=== PATIENT | female | born 1955 | race Caucasian/White ===

== ENCOUNTER 2022-04-11 11:46 | Outpatient (AMB) | payer MEDICARE, SELFPAY ==
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
[2022-04-11 12:30] VITALS: BP 142/94; PULSE 87; O2SAT 97; BMI 37.7
== END 2022-04-11 13:15 | disposition home or self-care (01) ==
LOC: HO.HMGC 11:46
PROVIDERS: PCP Internal Medicine; Visit Provider Internal Medicine
DX: Z00.01 Encounter for general adult medical examination with abnormal findings (principal); I10 Essential (primary) hypertension; F41.9 Anxiety disorder, unspecified; F32.A Depression, unspecified; E89.40 Asymptomatic postprocedural ovarian failure
CPT/HCPCS: 99397

== ENCOUNTER 2022-04-11 13:17 | Outpatient (REF) | payer MEDICARE, SELFPAY ==
[2022-04-11 16:27] LABS: MANUAL DIFF FLAG NO
[2022-04-11 16:40] LABS: Basophils Percent Auto 0.4 % (0-2); Eosinophils Absolute Auto 0.2 X10*3/uL (0.0-0.4); Eosinophils Percent Auto 2.1 % (0-4); Hematocrit 43.8 % (37.0-47.0); Hemoglobin 14.2 g/dl (12.0-16.0); Imm Gran Abs Auto 0.01 X10*3/uL (0.00-0.03); Imm Gran Pct Auto 0.1 % (0.0-0.4); Lymphocytes Absolute Auto 2.4 X10*3/uL (1.2-4.9); Lymphocytes Percent Auto 29.4 % (20-40); Mean Corpuscular HGB Conc 32.4 g/dl (31.0-35.0); Mean Corpuscular Hemoglobin 26.4 pg (27.0-33.0); Mean Corpuscular Volume 81.6 fL (80.0-98.0); Mean Platelet Volume 11.4 fL (9.4-12.3); Monocytes Absolute Auto 0.6 X10*3/uL (0.1-1.2); Monocytes Percent Auto 6.9 % (2-11); Neutrophils Percent Auto 61.1 % (45-73); Platelet Count 244 X10*3/uL (160-400); Red Blood Count 5.37 X10*6/uL (4.20-5.50); Red Cell Distribution Width 14.2 % (11.0-16.0); White Blood Count 8.1 X10*3/uL (4.8-10.8)
[2022-04-11 16:52] LABS: Alanine Aminotransferase 22 U/L (0-31); Anion Gap 13 (12-20); Aspartate Amino Transferase 18 U/L (5-31); Blood Urea Nitrogen 13 mg/dL (9-16); Calcium 9.6 mg/dL (8.4-10.2); Carbon Dioxide 27 mmol/L (22-29); Chloride 103 mmol/L (96-108); Cholesterol 294 mg/dL; Estimated Glomerular Filt Rate > 60; Glucose Fasting 107 mg/dL (60-99); HDL Cholesterol 47 mg/dL; Potassium 4.1 mmol/L (3.3-5.1); Sodium 139 mmol/L (135-145); Triglycerides 412 mg/dL
[2022-04-11 17:11] LABS: TSH reflex Free T4 0.79 uIU/mL (0.32-4.0)
== END 2022-04-11 13:18 | disposition home or self-care (01) ==
LOC: HO.HMGCLDS 13:17
PROVIDERS: PCP Internal Medicine; Visit Provider Internal Medicine
DX: Z00.01 Encounter for general adult medical examination with abnormal findings (principal); I10 Essential (primary) hypertension; E89.40 Asymptomatic postprocedural ovarian failure; F32.A Depression, unspecified; F41.9 Anxiety disorder, unspecified
CPT/HCPCS: 36415; 80048; 80061; 82306; 84443; 84450; 84460; 85025

== ENCOUNTER 2022-12-08 13:58 | Outpatient (AMB) | payer MEDICARE, SELFPAY ==
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
[2022-12-08 14:54] VITALS: BP 122/98; PULSE 84; TEMP 36.2; O2SAT 97
== END 2022-12-08 15:52 | disposition home or self-care (01) ==
PROVIDERS: PCP Internal Medicine; Visit Provider Internal Medicine
DX: N63.21 Unspecified lump in the left breast, upper outer quadrant (principal)
CPT/HCPCS: 99214

== ENCOUNTER 2022-12-29 13:47 | Outpatient (REF) | payer MEDICARE, SELFPAY ==
--- NOTE | ~2022-12-29 | MM_ITS ---
EXAMINATION: MM DIAGNOSTIC DIGITAL BREAST TOMOSYNTHESIS, BILATERAL US BREAST LIMITED, RIGHT MAMMOGRAPHY: CLINICAL INFORMATION: 67-year-old female, history of left breast CA in 1993 status post lumpectomy, and 2 benign excisional biopsies right breast, one showing atypia, last mammogram in 2011 ([facility]), now complaining of palpable abnormality in the right breast at the 12:00 position. Patient states she has felt the palpable area for 4 weeks . COMPARISON: Mammography: 08/09/2010 ([facility]). No additional priors. Ultrasound-guided right breast biopsy report dated 02/12/2005 (no included imaging) needle biopsy retroareolar 2.7 cm mass lesion was benign with pathology of adenosis with dense stromal fibrosis and rare microcalcifications. No malignancy or atypia. TECHNIQUE: Digital breast tomosynthesis is performed in both the craniocaudal and mediolateral oblique views along with computer-aided detection (CAD). Synthesized 2D images are generated from the tomosynthesis. In addition, full-field right 3-D mediolateral view was obtained, as well as a right CC spot compression 3-D view, and a left MLO 3-D spot compression view. FINDINGS: There are scattered areas of fibroglandular density (ACR BI-RADS breast composition Category b). RIGHT BREAST: There is a extensively spiculated irregular dense mass in the approximate 1:00 axis of the RIGHT breast, posterior one third, with associated microcalcifications, and extensive surrounding desmoplasia and parenchymal distortion. This appears to correlate well with the palpable focus of concern. On mammography it measures approximately 1.9 cm in diameter, with spiculations extending predominantly anteriorly toward the nipple. In addition in the RIGHT retroareolar region, there is a single bilobed or possibly 2 interposed masses, isodense, approximately 70% circumscribed, with associated small microcalcifications, and desmoplastic appearing reaction posteriorly, possibly directed toward the 1:00 spiculated mass lesion. This mass or masses were present in 2011 but are smaller on today's examination, on mammography spanning approximately 3.1 x 4.0 x 2.7 cm. (Previously in 2011 reported as 2.7 x 1.5 x 2.5 cm). LEFT BREAST: There is no suspicious abnormality in the left breast. There is a similar somewhat fibronodular parenchymal pattern in both breasts, likely related to fibrocystic changes. No axillary adenopathy or skin thickening is noted. Scarring is noted in the anterior aspects of both breasts from previous lumpectomies. ULTRASOUND: CLINICAL INFORMATION: As above. Palpable abnormality right breast 12:00 axis. Additional mass lesion seen in the retroareolar region, as described above, previously biopsied as benign. COMPARISON: No prior ultrasound images available. PRIOR REPORTS from 02/12/2005 right ultrasound and biopsy obtained from [facility]. Right breast ultrasound report 01/24/2005, 01/03/2005, 10/29/2004, and 10/23/2004 ([facility]). TECHNIQUE: Targeted sonographic evaluation was performed using a high frequency linear transducer. Selected archived documentation. FINDINGS: RIGHT BREAST: At the 1:00 axis, 8 cm from the nipple, there is a irregular, spiculated, shadowing, densely hypoechoic vascular mass measuring approximately 1.5 x 0.8 x 1.5 cm. There is extensive parenchymal distortion in the surrounding breast parenchyma and hyperechoic fat surrounding the mass. This is a highly suspicious abnormality, and possibly has parenchymal connections with the larger retroareolar mass. In the retroareolar RIGHT breast, there is a extremely hypoechoic irregular avascular mass lesion measuring approximately 2.7 x 2.4 x 1.4 cm, possibly representing scar tissue/fibrosis although superimposed or invading tumor is not excluded. No abnormal RIGHT axillary lymph nodes are present. Both areas are highly suspicious, and 2 site ultrasound-guided biopsy recommended with clip placement and postprocedure mammography. The above findings and recommendations were discussed in detail with the patient at the time of the examination. MM/MM tomosynthesis diagnostic BI IMPRESSION: 1. Highly suspicious hypoechoic spiculated irregular mass at the 1:00 axis RIGHT breast, 8 cm from the nipple, measuring approximately 1.5 cm maximal diameter. Ultrasound-guided biopsy recommended. 2. Moderately suspicious RIGHT retroareolar markedly hypoechoic irregular mass lesion measuring up to 2.7 cm with possible connection or spread to the 1:00 lesion, for which ultrasound-guided biopsy is also recommended. 3. Surgical consultation recommended. 4. No definite suspicious abnormality in the LEFT breast. OVERALL ASSESSMENT: Mammography: BI-RADS 5 - Highly suggestive of malignancy Ultrasound: BI-RADS 5 - Highly suggestive of malignancy RECOMMENDATION: Biopsy recommended
== END 2022-12-29 13:48 | disposition home or self-care (01) ==
LOC: HO.MAMMO 13:47
PROVIDERS: PCP Internal Medicine; Visit Provider Internal Medicine
DX: N63.15 Unspecified lump in the right breast, overlapping quadrants (principal)
CPT/HCPCS: 76642; 77062; 77066

== ENCOUNTER → 2022-12-29 14:00 | Outpatient (BNV) | payer MEDICARE, SELFPAY | PROVIDERS: PCP Internal Medicine; Visit Provider Radiology Diagnostic Radiology | DX: N63.12 Unspecified lump in the right breast, upper inner quadrant (principal); Z85.3 Personal history of malignant neoplasm of breast | CPT/HCPCS: 76642; 77062; 77066 ==

== ENCOUNTER 2023-01-07 08:08 | Outpatient (AMB) | payer MEDICARE, SELFPAY ==
[2023-01-07 08:12] VITALS: BMI 37.5
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
== END 2023-01-07 08:54 | disposition home or self-care (01) ==
PROVIDERS: PCP Internal Medicine; Visit Provider Surgery
DX: N63.10 Unspecified lump in the right breast, unspecified quadrant (principal); Z85.3 Personal history of malignant neoplasm of breast
CPT/HCPCS: 99204

== ENCOUNTER 2023-01-07 09:03 | Outpatient (REF) | payer MEDICARE, SELFPAY ==
--- NOTE | ~2023-01-07 | US_ITS ---
PROCEDURE: US GUIDED BREAST BIOPSY, RIGHT CLINICAL INFORMATION: 67-year-old female, history of left breast CA in 1993 status post lumpectomy, and 2 benign excisional biopsies right breast, one showing atypia, last mammogram in 2010 ([facility]), now complaining of palpable abnormality in the right breast at the 12:00 position. Patient states she has felt the palpable area for 4 weeks . 2 site biopsy right breast. Spiculated mass 1:00 axis 8 cm from the nipple measuring estimated 1.9 cm in diameter; larger hypoechoic shadowing mass retroareolar right breast measuring approximately 2.7 x 3.1 x 4.0 cm. Both suspicious for ultrasound-guided biopsy. COMPARISON: 12/29/2022 ([facility] [place]) 08/09/2010 ([facility]) PROCEDURAL DETAILS: (2 site right breast ultrasound-guided biopsy) The details of the procedure, as well as the risks, benefits, and alternatives to the procedure were explained to the patient in detail and all of her questions were answered, after which written informed consent was obtained. 2 sites and appropriate side were confirmed. Prior to the first biopsy, (site A) sonography revealed a densely shadowing spiculated mass at the 1:00 axis, 8 cm from the nipple, with retractile desmoplastic features, microlobulated borders, in the internal color Doppler flow. There is tenting of the underlying pectoralis fascia. Estimated size is 1.5 x 1.5 x 1.1 cm. A time-out was performed, the lesion intended for biopsy was targeted, and the skin of the overlying right breast was then prepped and draped in the usual sterile fashion. Using sonographic guidance, sterile technique, and 1% lidocaine without epinephrine for local anesthesia, I was able to lift the mass from the pectoralis fascia using a lidocaine buffer. At this point, multiple core biopsies were obtained through the targeted area SITE A with a 14G spring loaded Hemote[employer]era core biopsy device. There was real-time confirmation of appropriate needle passage. Sampling was documented. At the completion of tissue sampling, a single butterfly-shaped metallic clip was deposited at the biopsy site. The procedure was then repeated using same technique for the larger retroareolar mass (SITE B), with estimated size on ultrasound of 1.4 x 2.7 x 2.4 cm. It is irregular, microlobulated, essentially anechoic, densely shadowing, with mild distortion of the surrounding fat. This also extends to but does not tent the pectoralis fascia. It is located retroareolar. Using sonographic guidance, sterile technique, and 1% lidocaine without epinephrine for local anesthesia, multiple core biopsies were obtained through the targeted area of SITE B with a 14G spring loaded Hemoteqera core biopsy device. There was real-time confirmation of appropriate needle passage. Sampling was documented. At the completion of tissue sampling, a single open coil-shaped metallic clip was deposited at the biopsy site. There was no evidence of immediate complication. The patient tolerated both biopsies well. SPECIMEN: An appropriate sample was obtained. Numerous core biopsies taken from both sites. 3 cores at SITE A, and 5 cores at SITE B. DIGITAL POST-PROCEDURE MAMMOGRAPHY: The postprocedure 2-view direct digital mammogram reveals satisfactory and accurate positioning of both of the biopsy clips. The patient tolerated the procedure well and, after assuring adequate hemostasis, was discharged in good condition after reviewing postbiopsy breast care instructions. Final pathology results are pending. US/US breast ndl core bio ea add IMPRESSION: 1. No immediate complication from ultrasound-guided percutaneous 2 site biopsy right breast. 2. Ultrasound was used to localize and guide 2 marker clip placement. 3. The 2-view direct digital postprocedure mammogram reveals satisfactory and accurate positioning of both of the biopsy clips. 4. Final pathology results are pending. A separate report with final recommendations will be issued once these results are made available.
--- NOTE | ~2023-01-07 | US_ITS ---
PROCEDURE: US GUIDED BREAST BIOPSY, RIGHT CLINICAL INFORMATION: 67-year-old female, history of left breast CA in 1993 status post lumpectomy, and 2 benign excisional biopsies right breast, one showing atypia, last mammogram in 2010 ([facility]), now complaining of palpable abnormality in the right breast at the 12:00 position. Patient states she has felt the palpable area for 4 weeks . 2 site biopsy right breast. Spiculated mass 1:00 axis 8 cm from the nipple measuring estimated 1.9 cm in diameter; larger hypoechoic shadowing mass retroareolar right breast measuring approximately 2.7 x 3.1 x 4.0 cm. Both suspicious for ultrasound-guided biopsy. COMPARISON: 12/29/2022 ([facility] [place] 08/09/2010 ([facility]) PROCEDURAL DETAILS: (2 site right breast ultrasound-guided biopsy) The details of the procedure, as well as the risks, benefits, and alternatives to the procedure were explained to the patient in detail and all of her questions were answered, after which written informed consent was obtained. 2 sites and appropriate side were confirmed. Prior to the first biopsy, (site A) sonography revealed a densely shadowing spiculated mass at the 1:00 axis, 8 cm from the nipple, with retractile desmoplastic features, microlobulated borders, in the internal color Doppler flow. There is tenting of the underlying pectoralis fascia. Estimated size is 1.5 x 1.5 x 1.1 cm. A time-out was performed, the lesion intended for biopsy was targeted, and the skin of the overlying right breast was then prepped and draped in the usual sterile fashion. Using sonographic guidance, sterile technique, and 1% lidocaine without epinephrine for local anesthesia, I was able to lift the mass from the pectoralis fascia using a lidocaine buffer. At this point, multiple core biopsies were obtained through the targeted area SITE A with a 14G spring loaded [employer]era core biopsy device. There was real-time confirmation of appropriate needle passage. Sampling was documented. At the completion of tissue sampling, a single butterfly-shaped metallic clip was deposited at the biopsy site. The procedure was then repeated using same technique for the larger retroareolar mass (SITE B), with estimated size on ultrasound of 1.4 x 2.7 x 2.4 cm. It is irregular, microlobulated, essentially anechoic, densely shadowing, with mild distortion of the surrounding fat. This also extends to but does not tent the pectoralis fascia. It is located retroareolar. Using sonographic guidance, sterile technique, and 1% lidocaine without epinephrine for local anesthesia, multiple core biopsies were obtained through the targeted area of SITE B with a 14G spring loaded [employer]era core biopsy device. There was real-time confirmation of appropriate needle passage. Sampling was documented. At the completion of tissue sampling, a single open coil-shaped metallic clip was deposited at the biopsy site. There was no evidence of immediate complication. The patient tolerated both biopsies well. SPECIMEN: An appropriate sample was obtained. Numerous core biopsies taken from both sites. 3 cores at SITE A, and 5 cores at SITE B. DIGITAL POST-PROCEDURE MAMMOGRAPHY: The postprocedure 2-view direct digital mammogram reveals satisfactory and accurate positioning of both of the biopsy clips. The patient tolerated the procedure well and, after assuring adequate hemostasis, was discharged in good condition after reviewing postbiopsy breast care instructions. Final pathology results are pending. US/US breast ndl core biopsy RT IMPRESSION: 1. No immediate complication from ultrasound-guided percutaneous 2 site biopsy right breast. 2. Ultrasound was used to localize and guide 2 marker clip placement. 3. The 2-view direct digital postprocedure mammogram reveals satisfactory and accurate positioning of both of the biopsy clips. 4. Final pathology results are pending. A separate report with final recommendations will be issued once these results are made available.
--- NOTE | ~2023-01-07 | US_ITS ---
EXAMINATION: US DIAGNOSTIC ULTRASOUND BREAST, LEFT CLINICAL INFORMATION: Possible nodule seen anterior left breast slightly upper slightly outer quadrant, anterior one third. COMPARISON: Mammography dated 12/29/2022. TECHNIQUE: Ultrasound of the breast is performed with real-time núñez scale imaging and color Doppler. FINDINGS: There is mild duct ectasia noted in the retroareolar region. No intraductal mass seen. In the 2:00 axis of the left breast, possibly correlating with the finding on mammography, there is a hypoechoic oval nodule measuring 7 x 4 x 4 mm, with no posterior features, low-level internal echoes which are slightly hypoechoic, no internal color Doppler signal, and margins are well circumscribed. This is probably benign and most likely a small fibroadenoma or variant. Six-month interval follow-up recommended to ensure stability. US/US breast LT limited mamm only IMPRESSION: Small nodule left breast 2:00 axis anterior one third, most likely benign fibroadenoma or variant. Recommend six-month interval follow-up targeted ultrasound to ensure stability. Mammography is not required. ASSESSMENT: BI-RADS 3: Probably Benign RECOMMENDATION: Diagnostic sonography in 6 months. This patient's information was entered into a reminder system with a target due date for their next mammogram.
[2023-01-07] MEDS: Lidocaine HCl 1 % 20 ML VIAL 18 ML SUBCUT (12:34)
[2023-01-07] MEDS: Sodium Bicarbonate 8.4% 50 MEQ/50 ML VIAL SUBCUT (12:35)
== END 2023-01-07 09:04 | disposition home or self-care (01) ==
LOC: HO.MAMMO 09:03
PROVIDERS: Absent Provider Internal Medicine; PCP Internal Medicine; Visit Provider Surgery
DX: N63.21 Unspecified lump in the left breast, upper outer quadrant (principal)
CPT/HCPCS: 19083; 19084; 76642; 77062; 77065; 88305; 88342; 88360; A4648; C1894

== ENCOUNTER → 2023-01-07 10:00 | Outpatient (BNV) | payer MEDICARE, SELFPAY | PROVIDERS: Absent Provider Internal Medicine; PCP Internal Medicine; Visit Provider Radiology Diagnostic Radiology | DX: C50.211 Malignant neoplasm of upper-inner quadrant of right female breast (principal); N63.21 Unspecified lump in the left breast, upper outer quadrant | CPT/HCPCS: 19083; 19084; 76642; 77065 ==

== ENCOUNTER 2023-01-14 14:03 | Outpatient (AMB) | payer MEDICARE, SELFPAY ==
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
== END 2023-01-14 15:02 | disposition home or self-care (01) ==
PROVIDERS: PCP Internal Medicine; Visit Provider Surgery
DX: C50.919 Malignant neoplasm of unspecified site of unspecified female breast (principal)
CPT/HCPCS: 99214

== ENCOUNTER → 2023-01-14 14:03 | Outpatient (BNVA) | payer MEDICARE, SELFPAY | PROVIDERS: PCP Internal Medicine; Visit Provider Surgery | DX: C50.911 Malignant neoplasm of unspecified site of right female breast (principal) | CPT/HCPCS: 99212 ==

== ENCOUNTER → 2023-01-15 14:00 | Outpatient (BNV) | payer MEDICARE, SELFPAY | PROVIDERS: PCP Internal Medicine; Visit Provider Internal Medicine Medical Oncology | DX: C50.412 Malignant neoplasm of upper-outer quadrant of left female breast (principal); Z15.01 Genetic susceptibility to malignant neoplasm of breast; M81.0 Age-related osteoporosis without current pathological fracture | CPT/HCPCS: 99204; 99213; 99214 ==

== ENCOUNTER 2023-01-23 07:42 | Outpatient (REF) | payer MEDICARE, SELFPAY ==
--- NOTE | ~2023-01-23 | MM_ITS ---
EXAMINATION: MM MAMMOGRAM GUIDED RFID LOCALIZATION BREAST, RIGHT CLINICAL INFORMATION: Right breast invasive carcinoma, mixed ductal and lobular features, grade 2. Mass marked by butterfly shaped clip. 1:00 axis right breast, posterior one third. Estimated diameter 1.9 cm by ultrasound, largest diameter by biopsy core 11 mm. COMPARISON: Numerous reason priors 01/07/2023. TECHNIQUE NEEDLE LOC: Proper informed consent is obtained from the patient after discussion of the procedure, potential risks and complications, and alternatives including declining the procedure today. Patient was given an opportunity for questions. The patient appeared to understand. The patient consented to the procedure and signed the consent form. GUIDANCE: Digital mammography. APPROACH: Cranio-caudal. TARGET: Spiculated mass 1:00 axis right breast posterior one third. Mass marked by butterfly shaped clip. ANESTHESIA: carbonated lidocaine 1%: 4 mL. LOCALIZATION SYSTEM: -Workday LOCallizer Wire-Free Guidance System with 12g needle applicator. -Length: 7 cm. -RADIOFREQUENCY TAG: ID # [id number] DERMATOTOMY: Not required. RF Tag ID confirmed with LOCalizer Guidance System prior to placement. The skin is cleansed, prepped and local anesthesia administered. The needle was positioned and RFID tag deployed. Final images demonstrate the LOCalizer RF tag to reside within the 1:00 axis mass centrally. The patient tolerated the procedure well and had no immediate complications. Dressing placed and home instructions reviewed. MM/MM needle loc RT IMPRESSION: -Status post right breast RFID localization. RFID chip lies within the 1:00 mass, in perfect position. -Please refer to [facility] images (RSCC 3 of 3, RSML 3 of 3) of the right breast which is appropriately labeled and marked.
[2023-01-23] MEDS: Lidocaine HCl 1 % 20 ML VIAL 6 ML SUBCUT (09:06)
[2023-01-23] MEDS: Sodium Bicarbonate 8.4% 50 MEQ/50 ML VIAL SUBCUT (09:07)
== END 2023-01-23 07:43 | disposition home or self-care (01) ==
LOC: HO.MAMMO 07:42
PROVIDERS: PCP Internal Medicine; Visit Provider Surgery
DX: C50.911 Malignant neoplasm of unspecified site of right female breast (principal)
CPT/HCPCS: 19281; C1819

== ENCOUNTER 2023-01-30 08:20 | Day surgery (SDC) | payer MEDICARE, SELFPAY ==
[2023-01-28 16:03] VITALS: BMI 37.3
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
[2023-01-30] VITALS (9 sets, daily range): BP systolic 152–193; BP diastolic 75–104; PULSE 81–98; RESP 8–21; TEMP 36–36.7; O2SAT 91–99
--- NOTE | ~2023-01-30 | MM_ITS ---
EXAMINATION: RF ID LOCALIZATION SPECIMEN FROM THE RIGHT BREAST CLINICAL INFORMATION: Invasive carcinoma with mixed ductal and lobular features, right breast. COMPARISON: Localization imaging 01/23/2023. TECHNIQUE: A single view of the specimen was obtained. FINDINGS: The radiograph of the excised surgical specimen shows that the RFID chip, spiculated mass with central calcifications, and butterfly-shaped biopsy clip are contained centrally within the specimen. MM/MM surgical specimen IMPRESSION: Satisfactory excision of the RFID chip, spiculated mass, and butterfly-shaped biopsy clip. These findings were communicated to the surgeon in the OR at the time of specimen radiography.
--- NOTE | ~2023-01-30 | NM_ITS ---
EXAMINATION: NM LYMPH SCINTIGRAPHY CLINICAL INFORMATION: Malignant neoplasm/invasive ductal cancer, right breast. COMPARISON: None available. TECHNIQUE: Following explaining right breast lymphoscintigraphy procedure, benefits and risk, a written consent was obtained. Patient was placed supine on fluoroscopy table and area around the right breast areola was cleaned and draped in usual sterile manner. 4% lidocaine was applied around the right breast areola for 30 minutes. The cream was then cleaned in an aseptic manner. 0.500 uCi of 99m technetium Lymphoseek divided in 4 equal doses was injected in 4 quadrants around the breast areola and imaging obtained 45 minutes later. Patient tolerated procedure extremely well. FINDINGS: On imaging of the right breast areola approximately 45 minutes later, there are 4 areas of focal isotope activity in 4 quadrants. There is focal activity seen in the right anterior axilla. NM/NM sentinel node w imaging IMPRESSION: Solitary sentinel node seen in the right anterior axilla on right breast lymphoscintigraphy.
[2023-01-30] MEDS: Lidocaine 4 % Cream KIT 1 APPL TOPICAL (09:21)
[2023-01-30] MEDS: Lactated Ringers 1,000 ML 100 ML IVCONT (09:25)
--- NOTE | 2023-01-30 11:23 | MHC.SHP ---
Pre-Procedural Eval Section A Date of Service: 01/30/23 The patient is an INPATIENT: No Changes since office visit: No Cold of Flu in the past 2 weeks, No New Medical Problems, No Changes in Medication and No Patient answered all questions The History & Physical has been completed within 30 days and I have reviewed it.: Yes Section B Chief Complaint: Malignant neoplasm of unspecified site of unspecif Allergies: Allergies Allergy/AdvReac Type Severity Reaction Status Date / Time lisinopril Allergy Unknown rash on Verified 01/15/23 13:29 sun exposure Plan I have reviewed the history and physical and performed a pertinent physical examination on my patient. No changes have occurred unless specified. Time Spent With Patient Time: Total time managing care of this patient today ____ minutes.
--- NOTE | 2023-01-30 13:36 | P.OP_ITS ---
Operative Note Operative Note Date of Service: 01/30/23 Narrative: Preop diuagnosis: invasive ductal carcinoma, right breast Postop diagnosis: The same Procedure: Lumpectomy, right breast with Hologic localizer, and sentinel node biopsy of the right axilla Surgeon: Baljit Escoto MD environmental services assistant: JONNA Whyte The patient is a 67-year-old female with a recent diagnosis of a right breast inasive ductal carcinoma. She is here today for lumpectomy and sentinel biopsy. She understands the technique of the procedure as well as the risks, benefits, and alternatives. She had undergone scintigraphy earlier in radiology. I reviewed the films and there appeared to be 1 sentinel node in the axilla She was brought to the operating room and placed in supine position under general anesthesia via laryngeal mask airway. The arm was abducted to expose the axilla. The right breast all the way to the axilla and upper arm were prepped and draped in the usual sterile fashion. A surgical time-out was done. The patient received cefazolin 2 g IV preoperatively I used the Hologic probe identify the area closest to the clip the right breast at around the 1 o'clock position. I infiltrated this area with lidocaine 1% and made the incision transversely using a blade 15. I carried down this incision with electrocautery through the full-thickness of the skin and subcutaneous fat. I then proceeded to follow the RF signal in proceeded to do sharp dissection wi th the curved Joshi scissors to excise breast tissue surrounding this RF clipped. We periodically was the probed to make sure that we were including adequate breast tissue surrounding the lesion. We circumferentially dissected all the way to the deep margins until the entire specimen was delivered. I marked the lateral margin, superior margin as well as the deep margin with sutures. We did re-ray in the room and the biopsy clip along with the RF clips were both seen with in the middle of the specimen. I then sent the specimen for immediate gross exam. I regain to the excision site. I used electrocautery to achieve adequate hemostasis. Once this was done, proceeded to pack this with a sponge and we proceeded to do the sentinel node biopsy I changed gloves and instrument set up in the room. I identified the area of the strongest signal in the axilla and made my incision overlying this with a blade 15. I carried down this incision with electrocautery through the full-thickness of the skin and the subcutaneous layer until we entered the axillary fat pad. Periodically used the gamma probe to identify the strong marcio signals. I was able to identify 3 lymph nodes with elevated signals. This were all dissected sharply with Metzenbaum scissors, excised, and sent as specimens. Minster node#1 had a count of 227. Min[place] node# 2 had a count of 613. Sent inel node #3 had a count of 99. I irrigated. Once we did not have any other elevated counts in the background the use of the probe, I proceeded to then ensured hemostasis. Once hemostasis was confirmed, I reapposed deep axillary tissue with sharp 3-0 interrupted sutures. Skin closure was achieved with Polysorb 4-0 subcuticular running sutures. I received a call from the pathologist stating the margins appeared to be clear around an identified lesion within the specimen. We read some in the excision site in the upper part of the breast. This appeared to have adequate hemostasis so reapposed the breast tissue with Polysorb 3-0 interrupted sutures and closed the skin with Polysorb 4-0 subcuticular running stitch All incisions were infiltrated with Marcaine 0.5% for postop nanalgesia. Dressings were applied. The procedure was completed The patient tolerated procedure well. There were no immediate complications. Initial final counts sponges instruments were correct. Estimated blood loss about 50 cc. The patient was extubated without difficulty and transferred to the recovery room with stable vital signs. Breast Minster Node Biopsy Substrate(s) used for sentinel node biopsy in the non-neoadjuvant setting: Radiotracer All colored nodes or non-colored nodes present at the end of a dye filled lymphatic channel were removed, if dye was used as the substrate for localization: N/A All significantly radioactive nodes were removed, if radionuclide was used as t he substrate for localization: Yes All palpably suspicious nodes were removed, if present: N/A If clips were placed in pathology-involved nodes, those nodes were identified and removed: Yes General Surg. - Synoptic Notes Breast [place] Node Biopsy Substrate(s) used for sentinel node biopsy in the non-neoadjuvant setting: Radiotracer All colored nodes or non-colored nodes present at the end of a dye filled lymphatic channel were removed, if dye was used as the substrate for localization: N/A All significantly radioactive nodes were removed, if radionuclide was used as the substrate for localization: Yes All palpably suspicious nodes were removed, if present: N/A If clips were placed in pathology-involved nodes, those nodes were identified and removed: Yes
== END 2023-01-30 15:49 | disposition home or self-care (01) ==
PROVIDERS: PCP Internal Medicine; Visit Provider Surgery
PROC: (CPT 19301; principal; 2023-01-30 12:00)
PROC: (CPT 19301; 2023-01-30 12:00)
DX: C50.211 Malignant neoplasm of upper-inner quadrant of right female breast (principal); Z17.0 Estrogen receptor positive status [ER+]; Z85.3 Personal history of malignant neoplasm of breast; Z80.3 Family history of malignant neoplasm of breast; D25.9 Leiomyoma of uterus, unspecified; E89.41 Symptomatic postprocedural ovarian failure; I10 Essential (primary) hypertension; F41.8 Other specified anxiety disorders; Z88.8 Allergy status to other drugs, medicaments and biological substances; Z98.890 Other specified postprocedural states
CPT/HCPCS: 19301; 78195; 88307; 88329; 88341; 88342; 88360; A9520; J0131; J0690; J2250; J2795; J3010

== ENCOUNTER → 2023-01-30 08:20 | Outpatient (BNV) | payer MEDICARE, SELFPAY | PROVIDERS: PCP Internal Medicine; Visit Provider Surgery | DX: C50.211 Malignant neoplasm of upper-inner quadrant of right female breast (principal) | CPT/HCPCS: 19301; 38525; 38900 ==

== ENCOUNTER 2023-02-05 14:15 | Outpatient (REF) | payer MEDICARE, SELFPAY ==
--- NOTE | ~2023-02-05 | MM_ITS ---
EXAMINATION: BONE DENSITOMETRY CLINICAL INDICATION: Osteopenia. COMPARISON: This is the patient's baseline examination. TECHNIQUE: Using a [employer] DXA System (software version: 13.1) manufactured by [employer], dual-energy x-ray absorptiometry was performed of the lumbar spine and left hip. The images are of good technical quality. Summary results are attached. FINDINGS: LEFT FEMUR, NECK: BMD 0.649 g/cm2, Z-score -1.6, T-score -2.8, osteoporosis. LEFT FEMUR, TOTAL: BMD 0.764 g/cm2, Z-score -1.1, T-score -1.9, osteopenia. AP SPINE L1-L4: BMD 0.852 g/cm2, Z-score -1.8, T-score -2.7, osteoporosis. IDENTIFIED RISK FACTORS: Bilateral oophorectomy, early menopause, hysterectomy, low calcium intake, recurrent falls, history of fracture (adult), secondary osteoporosis. HISTORY OF FRACTURE: Elbow, femur, forearm, humerus, spine, wrist. MEDICATIONS: None listed. MM/XR DEXA axial skeleton IMPRESSION: 1. DIAGNOSIS: Severe osteoporosis based on the lowest T-score value of -2.8 in the femoral neck, and the history of a femur, forearm, humerus, spine and wrist fracture, applying World Health Organization criteria. 2. 10-YEAR FRACTURE RISK PREDICTION, FRAX: According to the guidelines, FRAX calculation should only be performed on patients in the osteopenia bone density category. Therefore, FRAX was not performed on this patient. 3. Treatment Recommendations: NOF guidelines recommend consideration for treatment in postmenopausal women and men age 50 and older presenting with the following: -A hip or vertebral (clinical or morphometric) fracture. -T-score less than or equal to -2.5 at the femoral neck or spine after appropriate evaluation to exclude secondary causes. -Low bone mass at the hip or spine and a 10-year fracture probability by FRAX of greater than or equal to 3% for hip fracture or greater than or equal to 20% for major osteoporotic fracture based on the [place] adapted WHO algorithm. 4. Other Recommendations: All treatment decisions require clinical judgment and consideration of individual patient factors, including patient preferences, comorbidities, previous drug use, risk factors not captured in the FRAX model (e.g. frailty, falls, vitamin D deficiency, increased bone turnover, interval significant decline in bone density) and possible under or overestimation of fracture risk by FRAX. Additional medical evaluation for secondary cause of low bone mineral density may be appropriate. FUTURE SCAN RECOMMENDATION: People with diagnosed cases of osteoporosis or at high risk for fracture should have regular bone mineral density tests. For patients eligible for Medicare, routine testing is allowed once every 2 years. The testing frequency can be increased to one year for patients who have rapidly progressing disease, those who are receiving or discontinuing medical therapy to restore bone mass, or have additional risk factors.
== END 2023-02-05 14:16 | disposition home or self-care (01) ==
LOC: HO.MAMMO 14:15
PROVIDERS: PCP Internal Medicine; Visit Provider Internal Medicine Medical Oncology
DX: Z13.820 Encounter for screening for osteoporosis (principal); M85.80 Other specified disorders of bone density and structure, unspecified site; Z78.0 Asymptomatic menopausal state
CPT/HCPCS: 77080

== ENCOUNTER → 2023-02-11 14:34 | Outpatient (REF) | payer MEDICARE, SELFPAY ==
--- NOTE | 2023-02-11 14:38 | CA_ITS ---
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 Normal LV ejection fraction 65-70% with mild LVH with grade 1 diastolic dysfunction 2. Normal cardiac valvular Doppler 3. No gross pericardial effusion Findings Procedure Information Contrast agent, definity, is being given per protocol without apparent complications. Left Ventricle Normal left ventricular size and systolic function. There is mildly increased left ventricular wall thickness. The visually estimated ejection fraction is between 65-70%. Spectral Doppler is indicative of an impaired relaxation filling pattern. E/E prime ratio is <8, consistent with normal filling pressures. Evidence suggests grade I (mild) diastolic dysfunction. Right Ventricle Normal right ventricular cavity size. Atria The left atrium is likely dilated. Interatrial shunt cannot be excluded. The right atrium is normal in size. Aortic Valve The aortic valve structure and function is likely normal. There is no aortic valve stenosis. There is no aortic valve regurgitation. Mitral Valve Normal mitral valve structure and function. There is trace mitral valve regurgitation. There is no mitral valve stenosis. Pulmonic Valve The pulmonic valve was not well visualized. Tricuspid Valve Likely normal tricuspid valve structure and function. Tricuspid regurgitation envelope is inadequate for calculation of right ventricular systolic pressure. Normal right atrial pressure. Great Vessels All visible segments of the aorta are normal in size. The pulmonary artery was not well visualized. Venous The inferior vena cava is normal in size and collapses greater than 50% with inspiration. Pericardium/Pleural There is no evidence of pericardial effusion. Prior Study Comparison No prior study available for comparison. Measurements 2D Linear Measurements IVSd: 1.28 0.6-0.9/0.6-1.0 cm LVIDd: 3.98 3.9-5.3/4.2-5.9 cm LVIDd Index: 2.17 2.4-3.2/2.2-3.1 cm/m2 LVIDs: 2.35 2.0-3.6 cm LVPWd: 1.26 0.7-1.1 cm LA Diam: 4.00 2.7-3.8/3.0-4.0 cm LAIDs Index: 2.19 1.5-2.3 cm/m2 LV Mass: 222.69 67-162/88-224 g LV Mass Index: 121.69 43-95/49-115 g/m2 LVOT Diam: 1.80 3.0+(-)1.3 cm 2D Systolic Function EF 4C: 67.90 >55% EF 2C: 68.30 >55% EF BiP: 68.20 >55% Mitral Valve MV Pk E: 0.68 MV PK A: 1.03 MV Decel Time: 337.00 E/A: 0.70 E'Lateral: 6.96 E'Medial: 5.87 E/E' Med: 11.50 E/E' Lat: 9.70 PHT: 99.00 MVA PHT: 2.22 Decel Thurston: 2.01 Aortic Valve AoV Pk Carl: 1.17 AoV Mn Carl: 0.85 AoV VTI: 0.26 AoV Pk Grad: 5.00 Aov Mn Grad: 3.00 RITA Cont.VTI: 2.10 LVOT LVOT Pk Carl: 0.82 LVOT Mn Carl: 0.57 LVOT VTI: 0.21 LVOT Pk Grad: 3.00 LVOT Mn Grad: 1.00 LVOT Diam: 1.80 LVOT Area: 2.54 Diastolic Function MV Pk E: 0.68 MV Pk A: 1.03 E/A: 0.70 E'Medial: 5.87 E/E' Med: 11.50 E' Laterial: 6.96 E/E' Lat: 9.70 Right Ventricle TAPSE (mm): 20.30 TVS' Carl: 10.60 Tricuspid Valve RA Press: 3.00 Great Vessels Aorta Sinus of Valsalva: 3.69 2.0-3.[address] Ridge: 2.50 1.7-3.4 cm Ao Asc: 3.20 2.1-3.4 cm Ao Arch: 3.00 Updated in Other Vendor System with Status of Final Raj Hernandez MD electronically signed on 02/12/2023 4:07:30 PM with status of Final
== END ==
LOC: HO.CARD 14:34
PROVIDERS: PCP Internal Medicine; Visit Provider Internal Medicine Medical Oncology
DX: C50.919 Malignant neoplasm of unspecified site of unspecified female breast (principal); Z01.818 Encounter for other preprocedural examination
CPT/HCPCS: 93306; Q9957

== ENCOUNTER → 2023-02-11 14:38 | Outpatient (BNV) | payer MEDICARE, SELFPAY | PROVIDERS: PCP Internal Medicine; Visit Provider Internal Medicine Cardiovascular Disease | DX: Z01.818 Encounter for other preprocedural examination (principal); C50.919 Malignant neoplasm of unspecified site of unspecified female breast | CPT/HCPCS: 93306 ==

== ENCOUNTER 2023-02-12 14:30 | Outpatient (AMB) | payer MEDICARE, SELFPAY ==
[2023-02-12 14:34] VITALS: BMI 38.6
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
== END 2023-02-12 15:07 | disposition home or self-care (01) ==
PROVIDERS: PCP Internal Medicine; Visit Provider Surgery
DX: C50.919 Malignant neoplasm of unspecified site of unspecified female breast (principal)
CPT/HCPCS: 99024

== ENCOUNTER → 2023-02-12 14:30 | Outpatient (BNVA) | payer MEDICARE, SELFPAY | PROVIDERS: PCP Internal Medicine; Visit Provider Surgery ==

== ENCOUNTER 2023-02-25 08:46 | Outpatient (AMB) | payer MEDICARE, SELFPAY ==
[2023-02-25 08:52] VITALS: BP 128/72; PULSE 86; O2SAT 97; BMI 39.2
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
== END 2023-02-25 09:10 | disposition home or self-care (01) ==
PROVIDERS: PCP Internal Medicine; Referring Provider Internal Medicine Medical Oncology; Visit Provider Surgery
DX: C50.919 Malignant neoplasm of unspecified site of unspecified female breast (principal)
CPT/HCPCS: 99024

== ENCOUNTER → 2023-02-25 08:46 | Outpatient (BNVA) | payer MEDICARE, SELFPAY | PROVIDERS: PCP Internal Medicine; Referring Provider Internal Medicine Medical Oncology; Visit Provider Surgery ==

== ENCOUNTER 2023-03-12 13:46 | Outpatient (REF) | payer MEDICARE, SELFPAY ==
--- NOTE | ~2023-03-12 | MR_ITS ---
EXAMINATION: MRI ABDOMEN WITH AND WITHOUT CONTRAST CLINICAL INFORMATION: Positive for PALB2 mutation. COMPARISON: No pertinent priors currently available. TECHNIQUE: Multiple routine MRI sequences through the abdomen were obtained on a high-field 1.5Tesla MRI. Pre-and postcontrast images with 9 mL of Gadavist intravenous contrast were obtained. This included a dynamic contrast-enhanced technique. Patient had difficulty holding her breath with motion artifact on several sequences. FINDINGS: Lung bases: The visualized lung bases are unremarkable. Small hiatal hernia. Liver: There is diffuse signal loss in the liver on the out of phase images consistent with diffuse fatty infiltration.. No suspicious focal hepatic lesions seen. Specifically no suspicious arterial phase enhancing lesions or suspicious washout of contrast on later phases. Biliary ducts: No intrahepatic biliary ductal dilatation. The common bile duct measures up to 1.4 cm in maximal diameter likely within normal limits for postcholecystectomy state. Gallbladder: Surgically absent Pancreas: Pancreas is homogeneous in signal. No pancreatic ductal dilatation or obstruction. No peripancreatic inflammatory changes or fluid. Spleen: Unremarkable Adrenals: Unremarkable Kidneys: Kidneys are normal in size, shape, and signal. No suspicious renal mass lesion seen. No hydronephrosis or perinephric edema. Other: No bulky adenopathy MR/MR abdomen wo/w con IMPRESSION: Diffuse fatty infiltration of the liver. No suspicious focal hepatic lesions seen. The common bile duct measures up to 1.4 cm in maximal diameter likely within upper normal limits for postcholecystectomy state.
--- NOTE | ~2023-03-12 | XR_ITS ---
Examination: Orbits pre-MRI. CLINICAL INDICATION: Hx of skull fracture 1990. History of foreign body. TECHNIQUE: 2 views of the skull FINDINGS: There are no radiopaque foreign body seen in the orbits or the facial bones. There is no fracture or hypertrophic bony changes involving the calvarium. The soft tissues are normal. IMPRESSION no metallic radiopaque foreign body seen in the orbits..
[2023-03-12] MEDS: gadobutroL 10 ML VIAL IVPUSH (15:12)
== END 2023-03-12 13:47 | disposition home or self-care (01) ==
LOC: HO.MRI 13:46
PROVIDERS: PCP Internal Medicine; Visit Provider Internal Medicine Medical Oncology
DX: Z85.3 Personal history of malignant neoplasm of breast (principal)
CPT/HCPCS: 74183; A9585

== ENCOUNTER 2023-04-23 15:03 | Outpatient (AMB) | payer MEDICARE, SELFPAY ==
[2023-04-23 15:39] VITALS: BP 128/72; PULSE 83; O2SAT 98; BMI 39.2
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
== END 2023-04-23 16:44 | disposition home or self-care (01) ==
PROVIDERS: Visit Provider Internal Medicine
DX: Z00.00 Encounter for general adult medical examination without abnormal findings (principal); M81.0 Age-related osteoporosis without current pathological fracture; C50.919 Malignant neoplasm of unspecified site of unspecified female breast; F41.9 Anxiety disorder, unspecified; F32.A Depression, unspecified; I10 Essential (primary) hypertension
CPT/HCPCS: 96127; 99397

== ENCOUNTER 2023-04-27 09:09 | Outpatient (REF) | payer MEDICARE, SELFPAY ==
[2023-04-27 09:51] LABS: Cholesterol 237 mg/dL (<200); HDL Cholesterol 40 mg/dL (>40); Triglycerides 437 mg/dL (<150)
[2023-04-27 10:06] LABS: Vitamin D 25-OH Total 21.7 ng/mL (>30)
== END 2023-04-27 09:10 | disposition home or self-care (01) ==
LOC: HO.LAB 09:09
PROVIDERS: PCP Internal Medicine; Visit Provider Internal Medicine
DX: Z00.01 Encounter for general adult medical examination with abnormal findings (principal); C50.919 Malignant neoplasm of unspecified site of unspecified female breast; M81.0 Age-related osteoporosis without current pathological fracture; E89.40 Asymptomatic postprocedural ovarian failure; F41.9 Anxiety disorder, unspecified; F32.A Depression, unspecified; I10 Essential (primary) hypertension
CPT/HCPCS: 36415; 80061; 82306

== ENCOUNTER 2023-07-10 14:06 | Outpatient (REF) | payer MEDICARE, SELFPAY ==
--- NOTE | ~2023-07-10 | US_ITS ---
EXAMINATION: US DIAGNOSTIC ULTRASOUND BREAST, LEFT CLINICAL INFORMATION: 6 month follow-up for probably benign nodule in the left breast, 2:00 axis, most likely benign fibroadenoma or variant. COMPARISON: 01/07/2023 left breast ultrasound. TECHNIQUE: Ultrasound of the left breast is performed with real-time núñez scale imaging and color Doppler. Attention was focused on the 2:00 axis. FINDINGS: In the left breast 2:00 axis, 3 cm from the nipple, there is a stable and unchanged circumscribed oval hypoechoic mass with good through transmission measuring 6 x 3 x 4 mm. No associated internal color Doppler flow or interval change in the appearance from prior. This remains probably benign. Mild duct ectasia noted in the retroareolar region, unchanged. US/US breast LT limited mamm only IMPRESSION: Stable small nodule measuring 6 x 3 x 4 mm left breast 2:00 axis anterior one third, most likely benign fibroadenoma or variant. This remains probably benign. Recommend six-month interval follow-up targeted ultrasound to ensure a one-year stability when the patient is due for bilateral screening mammography in December 2023. ASSESSMENT: BI-RADS 3 - Probably benign finding(s) - 6 month follow-up suggested RECOMMENDATION: 6 Month F/U This patient's information was entered into a reminder system with a target due date for their next mammogram.
== END 2023-07-10 14:07 | disposition home or self-care (01) ==
LOC: HO.MAMMO 14:06
PROVIDERS: PCP Internal Medicine; Visit Provider Internal Medicine
DX: R92.2 Inconclusive mammogram (principal)
CPT/HCPCS: 76642

== ENCOUNTER → 2023-07-10 14:30 | Outpatient (BNV) | payer MEDICARE, SELFPAY | PROVIDERS: PCP Internal Medicine; Visit Provider Radiology Diagnostic Radiology | DX: N63.21 Unspecified lump in the left breast, upper outer quadrant (principal); N60.42 Mammary duct ectasia of left breast | CPT/HCPCS: 76642 ==

== ENCOUNTER 2023-07-22 13:55 | Outpatient (AMB) | payer MEDICARE, SELFPAY ==
[2023-07-22 14:11] VITALS: BP 140/86; PULSE 94; TEMP 36.1; O2SAT 98; BMI 38.2
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
== END 2023-07-22 14:46 | disposition home or self-care (01) ==
PROVIDERS: PCP Internal Medicine; Visit Provider Nurse Practitioner Family
DX: R51.9 Headache, unspecified (principal)
CPT/HCPCS: 99213

== ENCOUNTER 2023-08-07 09:11 | Inpatient (IN) | payer MEDICARE, SELFPAY ==
[2023-08-07] VITALS (14 sets, daily range): BP systolic 145–210; BP diastolic 72–121; PULSE 74–97; RESP 14–22; TEMP 36.3–37.3; O2SAT 96–98; BMI 38.4
--- NOTE | ~2023-08-07 | CT_ITS ---
CT ANGIOGRAM NECK WITH CONTRAST CT ANGIOGRAM BRAIN WITH CONTRAST CLINICAL INFORMATION: Left-sided numbness, left facial droop,. COMPARISON: None available. TECHNIQUE: Test bolus sequences followed by intravenous administration 70 mL of Omnipaque 350. Helical imaging was performed in the axial plane from the thoracic inlet to the skull vertex. Delayed postcontrast imaging of the head was also performed. The data was processed at the sonography technologist workstation for generation of MIP sequences. Angled MIPs and volume rendered reformatted images were also generated at an offline 3D workstation under concurrent supervision. Stenoses are assessed in accordance with NASCET criteria unless otherwise indicated. This CT examination was performed using dose optimization techniques as appropriate, variously including the following: *Automated exposure control *Adjustment of mA and/or kV according to patient size (this includes techniques or standardized protocols for targeted exams where dose is matched to indication/reason for exam; i.e. extremities or head) *Use of iterative reconstruction technique FINDINGS: BRAIN: Indeterminate age infarct within the right occipital lobe that may be acute to subacute. Additionally there are multiple indeterminate age foci of hypoattenuation scattered throughout the supratentorial white matter and involving the caudate nuclei bilaterally and possibly the right sirisha. A MRI of the brain with and without IV contrast would be helpful in more definitively aging these infarcts and to exclude intracranial metastatic disease given the patient's document history of cancer. There is a partially calcified extra-axial mass along the right lateral convexity measuring 1.7 cm, most likely a meningioma. [There is no intracranial hemorrhage, hydrocephalus, extra-axial surface collection, midline shift, or other herniation pattern. The basilar cisterns are preserved. No significant soft tissue abnormality. No acute osseous abnormality. The paranasal sinuses and the mastoid air cells are well aerated.] CERVICAL SOFT TISSUES AND LUNG APICES: Nonspecific airspace opacities within the right lung. There is advanced cervical spondylosis. No significant soft tissue findings within the neck. NECK CTA: Left common carotid artery arises from the brachiocephalic artery, an anatomic variant. The right vertebral artery origin is attenuated by artifact and not diagnostically assessed. The left vertebral artery is dominant. Both common and internal carotid arteries are normal in course and caliber.] BRAIN CTA: Severe stenoses involving the right P1 and P2 posterior cerebral artery segments. No additional significant stenoses intracranially. No aneurysm. Timing of the contrast bolus allows assessment of the major dural venous sinuses, which all opacify normally] CT/CT angio head neck stroke IMPRESSION: - Indeterminate age infarct within the right occipital lobe that may be acute to subacute. Additionally there are multiple indeterminate age foci of hypoattenuation scattered throughout the supratentorial white matter and involving the caudate nuclei bilaterally and possibly the right sirisha. A MRI of the brain with and without IV contrast would be helpful in more definitively aging these infarcts and to exclude diffuse embolic infarcts or intracranial metastatic disease given the patient's document history of cancer. - There is a partially calcified extra-axial mass along the right lateral convexity measuring 1.7 cm, most likely a meningioma. 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 Severe stenoses involving the right P1 and P2 posterior cerebral artery segments. No additional significant stenoses intracranially. No additional occlusions intracranially. No significant arterial stenoses within the neck. - Nonspecific airspace opacities partially imaged within the right lung. Findings discussed with Dawna Juarez MD at 10:52 AM on 08/07/2023.
--- NOTE | ~2023-08-07 | CT_ITS ---
CT ANGIOGRAM NECK WITH CONTRAST CT ANGIOGRAM BRAIN WITH CONTRAST CLINICAL INFORMATION: Left-sided numbness, left facial droop,. COMPARISON: None available. TECHNIQUE: Test bolus sequences followed by intravenous administration 70 mL of Omnipaque 350. Helical imaging was performed in the axial plane from the thoracic inlet to the skull vertex. Delayed postcontrast imaging of the head was also performed. The data was processed at the geodetic surveyor technologist workstation for generation of MIP sequences. Angled MIPs and volume rendered reformatted images were also generated at an offline 3D workstation under concurrent supervision. Stenoses are assessed in accordance with NASCET criteria unless otherwise indicated. This CT examination was performed using dose optimization techniques as appropriate, variously including the following: *Automated exposure control *Adjustment of mA and/or kV according to patient size (this includes techniques or standardized protocols for targeted exams where dose is matched to indication/reason for exam; i.e. extremities or head) *Use of iterative reconstruction technique FINDINGS: BRAIN: Indeterminate age infarct within the right occipital lobe that may be acute to subacute. Additionally there are multiple indeterminate age foci of hypoattenuation scattered throughout the supratentorial white matter and involving the caudate nuclei bilaterally and possibly the right sirisha. A MRI of the brain with and without IV contrast would be helpful in more definitively aging these infarcts and to exclude intracranial metastatic disease given the patient's document history of cancer. There is a partially calcified extra-axial mass along the right lateral convexity measuring 1.7 cm, most likely a meningioma. [There is no intracranial hemorrhage, hydrocephalus, extra-axial surface collection, midline shift, or other herniation pattern. The basilar cisterns are preserved. No significant soft tissue abnormality. No acute osseous abnormality. The paranasal sinuses and the mastoid air cells are well aerated.] CERVICAL SOFT TISSUES AND LUNG APICES: Nonspecific airspace opacities within the right lung. There is advanced cervical spondylosis. No significant soft tissue findings within the neck. NECK CTA: Left common carotid artery arises from the brachiocephalic artery, an anatomic variant. The right vertebral artery origin is attenuated by artifact and not diagnostically assessed. The left vertebral artery is dominant. Both common and internal carotid arteries are normal in course and caliber.] BRAIN CTA: Severe stenoses involving the right P1 and P2 posterior cerebral artery segments. No additional significant stenoses intracranially. No aneurysm. Timing of the contrast bolus allows assessment of the major dural venous sinuses, which all opacify normally] CT/CT head for stroke IMPRESSION: - Indeterminate age infarct within the right occipital lobe that may be acute to subacute. Additionally there are multiple indeterminate age foci of hypoattenuation scattered throughout the supratentorial white matter and involving the caudate nuclei bilaterally and possibly the right sirisha. A MRI of the brain with and without IV contrast would be helpful in more definitively aging these infarcts and to exclude diffuse embolic infarcts or intracranial metastatic disease given the patient's document history of cancer. - There is a partially calcified extra-axial mass along the right lateral convexity measuring 1.7 cm, most likely a meningioma. 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 Severe stenoses involving the right P1 and P2 posterior cerebral artery segments. No additional significant stenoses intracranially. No additional occlusions intracranially. No significant arterial stenoses within the neck. - Nonspecific airspace opacities partially imaged within the right lung. Findings discussed with Dawna Juarez MD at 10:52 AM on 08/07/2023.
--- NOTE | ~2023-08-07 | MR_ITS ---
MR BRAIN WITHOUT AND WITH CONTRAST CLINICAL INFORMATION: Weakness and numbness. COMPARISON: Head CT and CTA head and neck 08/07/2023. TECHNIQUE: Multiplanar, multisequence MRI of the brain was obtained before and after the intravenous administration of 9 mL Gadavist. FINDINGS: There is a partially calcified homogeneously enhancing extra-axial mass along the right lateral convexity measuring 1.9 cm x 1.2 cm that is most compatible with a meningioma. Acute infarcts within the right paramedian sirisha and an acute on subacute infarct within the right occipital lobe. Gyriform enhancement involving the subacute portion of the right occipital lobe infarct. No mass effect and no hemorrhagic transformation. Moderate chronic microangiopathy and chronic lacunar infarcts within the supratentorial white matter. There is no hydrocephalus, extra-axial surface collection, or herniation. The major flow voids at the skull base are preserved. There is no intracranial hemorrhage on the gradient recalled echo acquisition. The craniocervical junction is normal. Osseous marrow signal intensity is homogenous. The visualized soft tissues are unremarkable. MR/MR head/brain wo/w con IMPRESSION: - Acute infarcts within the right paramedian sirisha and an acute on subacute infarct within the right occipital lobe. No mass effect and no hemorrhagic transformation. Gyriform enhancement involving the subacute portion of the right occipital lobe infarct, most likely related to blood brain barrier breakdown that can be followed with MRI to ensure resolution and exclude alternative etiologies. - There is a partially calcified homogeneously enhancing extra-axial mass along the right lateral convexity measuring 1.9 cm x 1.2 cm that is most compatible with a meningioma. - Moderate chronic microangiopathy and chronic lacunar infarcts within the supratentorial white matter.
--- NOTE | 2023-08-07 09:32 | ECG_ITS ---
Test Reason : STROKE SYMPTOMS Blood Pressure : / mmHG Vent. Rate : 082 BPM Atrial Rate : 082 BPM P-R Int : 160 ms QRS Dur : 066 ms QT Int : 372 ms P-R-T Axes : 017 010 026 degrees QTc Int : 434 ms Normal sinus rhythm Normal ECG No previous ECGs available Referred By: Dawna Juarez Electronically Signed By:ASHLEY NULL MD
[2023-08-07 09:34] LABS: Prothrombin Time Whole Bld POC 11.4 sec (11.1-13.5); ~PT, ~INR - Anti Coag Clinic 0.9 (0.9-1.1)
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
[2023-08-07 09:35] LABS: Glucose, Whole Blood 132 mg/dL (60-115)
[2023-08-07] MEDS: Labetalol HCL 100 MG/20 ML VIAL IVPUSH ×2 (09:45→11:14)
--- NOTE | 2023-08-07 09:53 | PC.NURSE ---
Patient reports on tue started with unsteady gait but resolved. Reports last night started with left sided weakness that got worse this am. Unable to lift left leg, difficulty raising left arm and spasms in left arm . Reports left sided facial droop in normal but speech is harder for her because she needs to think hard about what she is going to say
[2023-08-07 09:55] LABS: MANUAL DIFF FLAG NO
[2023-08-07 10:01] LABS: Basophils Percent Auto 0.3 % (0-2); Eosinophils Absolute Auto 0.1 X10*3/uL (0.0-0.4); Hematocrit 39.3 % (37.0-47.0); Hemoglobin 13.2 g/dl (12.0-16.0); Imm Gran Abs Auto 0.02 X10*3/uL (0.00-0.03); Imm Gran Pct Auto 0.3 % (0.0-0.4); Lymphocytes Absolute Auto 1.4 X10*3/uL (1.2-4.9); Lymphocytes Percent Auto 24.9 % (20-40); Mean Corpuscular HGB Conc 33.6 g/dl (31.0-35.0); Mean Corpuscular Volume 80.4 fL (80.0-98.0); Mean Platelet Volume 10.9 fL (9.4-12.3); Monocytes Absolute Auto 0.6 X10*3/uL (0.1-1.2); Monocytes Percent Auto 9.5 % (2-11); Neutrophils Absolute Auto 3.7 x10*3/uL (2.0-8.3); Platelet Count 180 X10*3/uL (160-400); Red Blood Count 4.89 X10*6/uL (4.20-5.50); Red Cell Distribution Width 13.8 % (11.0-16.0); White Blood Count 5.8 X10*3/uL (4.8-10.8)
[2023-08-07 10:06] LABS: INTERNATIONAL NORM RATIO 0.9 (0.9-1.1)
[2023-08-07 10:09] LABS: Partial Thromboplastin Time 28.3 SEC (26.0-36.8)
[2023-08-07 10:21] LABS: Anion Gap 14 (12-20); Blood Urea Nitrogen 11 mg/dL (9-16); Calcium 9.3 mg/dL (8.4-10.2); Carbon Dioxide 24 mmol/L (22-29); Chloride 107 mmol/L (96-108); Estimated Glomerular Filt Rate > 60; Glucose Random 129 mg/dL (60-115); Potassium 3.7 mmol/L (3.3-5.1); Sodium 141 mmol/L (135-145)
[2023-08-07 10:32] LABS: Stroke Lab Use COMPLETE
[2023-08-07] MEDS: iohexoL 350 MG/ML 100 ML INFUS..BTL IV (10:37)
--- NOTE | 2023-08-07 11:00 | CA_ITS ---
Transthoracic Echocardiogram Patient (Last, First, Middle): Kym Hart, Gender: Female Date of : 1955 Age: 67 Procedure Date: 08/07/2023 Procedure Type: Transthoracic Echocardiogram Location: ER Height: 149.86 cm Weight: 86.18 kg BSA: 1.80 m2 Heart Rate: 80 bpm BP: 165 / 77 mmHg Floor Finisher: KEDAR Lara MD: Paradise COYLE Deputy County Attorney: Raj Hernandez MD Symptoms: Subacute vs acute CVA Study Quality: Technically Difficult ECG Rhythm: Sinus Conclusions: - 1. Technically limited study 2. Hyperdynamic LV EF of greater than 70% with mild LVH with impaired relaxation filling pattern 3. Some calcific changes noted in the aortic valve with normal cardiac valvular Doppler Findings Procedure Information Contrast agent, definity, is being given per protocol without apparent complications. Left Ventricle Normal left ventricular cavity size. There is mildly increased left ventricular wall thickness. The left ventricular systolic function is hyperdynamic. The visually estimated ejection fraction is >70%. Spectral Doppler is indicative of an impaired relaxation filling pattern. E/E prime ratio is between 8 and 15 consistent with indeterminate filling pressures. Right Ventricle The right ventricle was not well visualized. Atria The left atrium is normal in size. Interatrial shunt cannot be excluded. The right atrium was not well visualized. Aortic Valve The aortic valve was not well visualized. There is mild calcification of the aortic valve. There is no aortic valve stenosis. There is no aortic valve regurgitation. Mitral Valve The mitral valve was not well visualized. There is no mitral valve regurgitation. There is no mitral valve stenosis. Pulmonic Valve The pulmonic valve was not well visualized. Tricuspid Valve The tricuspid valve was not well visualized. Tricuspid regurgitation envelope is inadequate for calculation of right ventricular systolic pressure. Great Vessels The aorta was not well visualized. The pulmonary artery was not well visualized. Venous The inferior vena cava is normal in size. Pericardium/Pleural The pericardium was not well visualized. Measurements 2D Linear Measurements IVSd: 1.23 0.6-0.9/0.6-1.0 cm LVIDd: 3.30 3.9-5.3/4.2-5.9 cm LVIDd Index: 1.83 2.4-3.2/2.2-3.1 cm/m2 LVIDs: 1.63 2.0-3.6 cm LVPWd: 1.09 0.7-1.1 cm LA Diam: 2.90 2.7-3.8/3.0-4.0 cm LAIDs Index: 1.61 1.5-2.3 cm/m2 LV Mass: 147.23 67-162/88-224 g LV Mass Index: 81.79 43-95/49-115 g/m2 LVOT Diam: 1.90 3.0+(-)1.3 cm 2D Systolic Function EF 4C: 72.90 >55% EF 2C: 72.80 >55% EF BiP: 72.30 >55% Mitral Valve MV Pk E: 0.81 MV PK A: 1.07 MV Decel Time: 310.00 E/A: 0.80 E'Lateral: 9.03 E'Medial: 7.07 E/E' Med: 11.50 E/E' Lat: 9.00 PHT: 91.00 MVA PHT: 2.42 Decel [place]: 2.61 Aortic Valve AoV Pk Carl: 1.62 AoV Mn Carl: 1.08 AoV VTI: 0.32 AoV Pk Grad: 10.00 Aov Mn Grad: 6.00 RITA Cont.VTI: 2.04 LVOT LVOT Pk Carl: 1.10 LVOT Mn Carl: 0.82 LVOT VTI: 0.23 LVOT Pk Grad: 5.00 LVOT Mn Grad: 3.00 LVOT Diam: 1.90 LVOT Area: 2.84 Diastolic Function MV Pk E: 0.81 MV Pk A: 1.07 E/A: 0.80 E'Medial: 7.07 E/E' Med: 11.50 E' Laterial: 9.03 E/E' Lat: 9.00 Right Ventricle TAPSE (mm): 18.90 TVS' Carl: 10.30 Great Vessels Aorta Sinus of Valsalva: 3.60 2.0-3.5 cm Ao Asc: 3.40 2.1-3.4 cm Pulmonary Valve PV Pk Carl: 0.96 Peak PV Grad: 4.00 Updated in Other Vendor System with Status of Final Raj Hernandez MD electronically signed on 08/07/2023 4:12:52 PM with status of Final
[2023-08-07] MEDS: Aspirin 81 MG TAB.CHEW 324 MG PO (11:07)
[2023-08-07 11:09] LABS: Troponin-I High Sensitivity 6.5 ng/L (<3.5-17.0)
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
--- NOTE | 2023-08-07 11:42 | PC.NURSE ---
Brought to MRI by transport
[2023-08-07 12:15] LABS: Cholesterol 259 mg/dL (<200); HDL Cholesterol 42 mg/dL (>40); Triglycerides 440 mg/dL (<150)
[2023-08-07] MEDS: gadobutroL 10 ML VIAL IVPUSH (12:40)
--- NOTE | 2023-08-07 13:25 | PHA.MEDREC ---
Pharmacy Consult ? Medication Reconciliation Pharmacy has completed the medication reconciliation. Spoke with patient, she stopped taking her tamoxifen on 07/23/23, she plans to resume once everything with her eyes are improved.
[2023-08-07] MEDS: Enoxaparin Sodium 40 MG/0.4 ML SYRINGE SUBCUT (13:55)
[2023-08-07] MEDS: Clopidogrel Bisulfate 75 MG TABLET PO (13:56)
[2023-08-07 14:17] LABS: Estimated Average Glucose 123 mg/dL; Hemoglobin A1c % 5.9 % (<6.0)
--- NOTE | 2023-08-07 16:26 | PC.NURSE ---
Alert and oriented, denies pain or discomfort, report given to accepting unit, partner and patient aware plan is to be moved upstairs
--- NOTE | 2023-08-07 16:33 | MHC.EDTECH ---
THIS PCT ASSUMED CARE OF PATIENT AT 1500 ,VITALS TAKEN ,PATIENT WATCHING TELEVISION .
[2023-08-07] MEDS: Acetaminophen 325 MG TABLET 650 MG PO (21:50)
[2023-08-07] MEDS: Melatonin 3 MG TABLET 6 MG PO (21:51)
[2023-08-07] MEDS: Atorvastatin Calcium 40 MG TABLET PO (21:51)
[2023-08-08] MEDS: 0.9 % Sodium Chloride Flush 3 ML SYRINGE IVFLUSH ×2 (02:35→09:04)
[2023-08-08 03:26] VITALS: BP 139/91; PULSE 89; RESP 18; TEMP 36.2; O2SAT 97
[2023-08-08 07:38] VITALS: BP 166/85; PULSE 74; RESP 20; TEMP 36.1; O2SAT 97
[2023-08-08] MEDS: Clopidogrel Bisulfate 75 MG TABLET PO (09:04)
[2023-08-08] MEDS: Aspirin 81 MG TAB.CHEW PO (09:04)
--- NOTE | 2023-08-08 09:51 | MHC.CM.PN ---
IMM 08/08/23, Pt lives with her spouse, Elissa, who is her HCP, form to be completed here and added to file. Pt has a cane at home, her PCP was confirmed: Dr. Burton. DC plan is home with [facility] for PT and OT. Referrals out. CM to follow and assist with DC plan.
--- NOTE | 2023-08-08 10:21 | W.MHC.F2F ---
Service Date Service Date: 08/08/23 Encounter Date of encounter: 08/08/23 Reasons for Services Signs and symptoms assessed: Neurologic deficits from strokes Reason for physical therapy: home safety and mobility, therapeutic exercises, gait/transfer training, assess need for DME, ADL training and energy conservation Reason for occupational therapy: home safety and mobility, therapeutic exercises, gait/transfer training, assess need for DME, ADL training and energy conservation Overseeing Care: Nicol Burton Homebound: Leaving the home is medically contraindicated at this time without the asist of a device and/or another person due th the listed conditions above and below. Reason homebound: unsteady gait / fall risk and weakness related to hospital stay Homebound supporting statement: Attach PT and OT notes from 08/07/23 Certification: Based on the above findings, I certify that this patient is confined to the home and needs intermittent correction care, physical therapy and/or speech therapy, or continues to need occupational therapy. The patient is under my care, and I have initiated the establishment of the plan of care. The patient will be followed by a physician who will periodically review the plan of care. Time Spent With Patient Time: Total time managing care of this patient today ____ minutes.
--- NOTE | 2023-08-08 10:32 | W.MHC.F2F ---
Service Date Service Date: 08/08/23 Encounter Date of encounter: 08/08/23 Reasons for Services Signs and symptoms assessed: Impaired Bed Mobility, Impaired Gait Pattern, Impaired Standing Balance, Impaired Transfer Ability,Muscle Weakness Gross Deconditioning, Impaired Bed Mobility, Impaired FMC, Impaired Gait Pattern, Impaired Joint ROM,Impaired Personal Hygiene, Impaired Standing Balance, Impaired Transfer Ability, Impaired Trunk Control, Inability to Dress Self, Inability to Use Toilet, Muscle Weakness Reason for physical therapy: home safety and mobility, therapeutic exercises, gait/transfer training, assess need for DME, ADL training and energy conservation Reason for occupational therapy: home safety and mobility, therapeutic exercises, gait/transfer training, assess need for DME, ADL training and energy conservation Overseeing Care: Nicol Burton Homebound: Leaving the home is medically contraindicated at this time without the asist of a device and/or another person due th the listed conditions above and below. Reason homebound: poor balance / fall risk, weakness related to hospital stay and other (visual impairment) Homebound supporting statement: PT: Bed Mobility, Transfer Training,Gait Training, Therapeutic Activities, Therapeutic Exercise,Neuro Re-education, Patient Education, Safety,Balance OT: Adaptive Equipment,ADL Training, Cognition, Functional Mobility,Neuro Re-education, Patient Education, Therapeutic Activity, Therapeutic Exercise, Transfer Training,Visual Perceptual Certification: Based on the above findings, I certify that this patient is confined to the home and needs intermittent shelter care, physical therapy and/or speech therapy, or continues to need occupational therapy. The patient is under my care, and I have initiated the establishment of the plan of care. The patient will be followed by a physician who will periodically review the plan of care. Time Spent With Patient Time: Total time managing care of this patient today ____ minutes.
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
--- NOTE | 2023-08-08 11:05 | MHC.CM.PN ---
Pt has been medically cleared for DC, she will go home via private transport, and have VNA services from [facility].
--- NOTE | 2023-08-09 18:39 | MHC.STROKE ---
Late Entry from 08/06: Met with patient and discussed her admission to the hospital. Stroke Education provided to patient. Swallow completed prior to po intake Ultrasound approached bedside to perform ordered imaging. Reinforcement needed regarding diagnosis. Patient aware and agreeable to plan of care.
== END 2023-08-08 11:14 | disposition home health service (06) | DRG 65 ==
LOC: HO.ED 11:16 → HO.EDOVER 12:26 → HO.IMC 15:45
PROVIDERS: Admitting Provider Student in an Organized Health Care Education/Training Program; Emergency Provider Student in an Organized Health Care Education/Training Program; PCP Internal Medicine; Visit Provider Family Medicine
DX: I63.89 Other cerebral infarction (principal); G81.94 Hemiplegia, unspecified affecting left nondominant side; R29.705 NIHSS score 5; C50.919 Malignant neoplasm of unspecified site of unspecified female breast; D32.9 Benign neoplasm of meninges, unspecified; I10 Essential (primary) hypertension; I67.2 Cerebral atherosclerosis; R73.03 Prediabetes; Z79.810 Long term (current) use of selective estrogen receptor modulators (SERMs); Z79.899 Other long term (current) drug therapy
CPT/HCPCS: 36415; 70450; 70496; 70498; 70553; 80048; 80061; 82550; 82947; 83036; 84484; 85025; 85610; 85730; 93005; 93306; 97162; 97166; 99222; 99285; A9585; J1650; J1920; Q9957; Q9967

== ENCOUNTER → 2023-08-07 09:32 | Outpatient (BNV) | payer MEDICARE, SELFPAY | PROVIDERS: Admitting Provider Student in an Organized Health Care Education/Training Program; Emergency Provider Student in an Organized Health Care Education/Training Program; PCP Internal Medicine; Visit Provider Internal Medicine Cardiovascular Disease | DX: I67.81 Acute cerebrovascular insufficiency (principal) | CPT/HCPCS: 93010; 93306 ==

== ENCOUNTER → 2023-08-07 11:15 | Outpatient (BNV) | payer MEDICARE, SELFPAY | PROVIDERS: Emergency Provider Student in an Organized Health Care Education/Training Program; PCP Internal Medicine; Visit Provider Psychiatry & Neurology Neurology | DX: G81.94 Hemiplegia, unspecified affecting left nondominant side (principal) | CPT/HCPCS: 99222 ==

== ENCOUNTER → 2023-08-07 11:46 | Outpatient (BNV) | payer MEDICARE, SELFPAY | PROVIDERS: Admitting Provider Student in an Organized Health Care Education/Training Program; Emergency Provider Student in an Organized Health Care Education/Training Program; PCP Internal Medicine; Visit Provider Student in an Organized Health Care Education/Training Program | DX: I63.9 Cerebral infarction, unspecified (principal); I67.2 Cerebral atherosclerosis; R73.03 Prediabetes | CPT/HCPCS: 99223; 99239; G0180 ==

== ENCOUNTER 2023-08-11 10:22 | Outpatient (AMB) | payer MEDICARE, SELFPAY ==
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
[2023-08-11 11:01] VITALS: BP 138/80; PULSE 83; O2SAT 97; BMI 38.2
== END 2023-08-11 12:03 | disposition home or self-care (01) ==
PROVIDERS: PCP Internal Medicine; Visit Provider Internal Medicine
DX: I10 Essential (primary) hypertension (principal); G81.94 Hemiplegia, unspecified affecting left nondominant side; D32.9 Benign neoplasm of meninges, unspecified; I69.30 Unspecified sequelae of cerebral infarction; R26.81 Unsteadiness on feet; R73.03 Prediabetes
CPT/HCPCS: 99214

== ENCOUNTER → 2023-09-29 10:04 | Outpatient (REF) | payer MEDICARE, SELFPAY ==
--- NOTE | 2023-09-29 10:12 | HM_ITS ---
* Total monitoring time 6 days. * Underlying rhythm is sinus with an average rate of 82/Min. * Rare supraventricular ectopy. * Rare ventricular ectopy. * No significant pauses or high-grade AV blocks. * No patient markers or diary events. MTDD
== END ==
LOC: HO.CARD 10:04
PROVIDERS: PCP Internal Medicine; Visit Provider Psychiatry & Neurology Neurology
DX: I63.9 Cerebral infarction, unspecified (principal); I47.10 Supraventricular tachycardia, unspecified
CPT/HCPCS: 93242

== ENCOUNTER → 2023-09-29 10:12 | Outpatient (BNV) | payer MEDICARE, SELFPAY | PROVIDERS: PCP Internal Medicine; Visit Provider Internal Medicine | DX: I49.3 Ventricular premature depolarization (principal) | CPT/HCPCS: 93244 ==

== ENCOUNTER 2023-11-03 14:13 | Outpatient (REF) | payer MEDICARE, SELFPAY ==
[2023-11-03 16:38] LABS: Alanine Aminotransferase 27 U/L (0-31); Anion Gap 16 (12-20); Aspartate Amino Transferase 24 U/L (5-31); Blood Urea Nitrogen 16 mg/dL (9-16); Calcium 10.2 mg/dL (8.4-10.2); Carbon Dioxide 23 mmol/L (22-29); Chloride 105 mmol/L (96-108); Cholesterol 127 mg/dL (<200); Estimated Glomerular Filt Rate > 60; Glucose Fasting 84 mg/dL (60-99); HDL Cholesterol 37 mg/dL (>40); LDL Cholesterol Calculated 28 mg/dL (<100); Potassium 4.2 mmol/L (3.3-5.1); Sodium 140 mmol/L (135-145); Triglycerides 314 mg/dL (<150)
== END 2023-11-03 14:14 | disposition home or self-care (01) ==
LOC: HO.HMGCLDS 14:13
PROVIDERS: PCP Internal Medicine; Visit Provider Internal Medicine
DX: I10 Essential (primary) hypertension (principal); R73.03 Prediabetes; Z86.73 Personal history of transient ischemic attack (TIA), and cerebral infarction without residual deficits
CPT/HCPCS: 36415; 80048; 80061; 84450; 84460

== ENCOUNTER 2023-11-05 13:57 | Outpatient (AMB) | payer MEDICARE, SELFPAY ==
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
[2023-11-05 14:12] VITALS: BP 150/90; PULSE 88; O2SAT 97; BMI 38.8
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
== END 2023-11-05 14:52 | disposition home or self-care (01) ==
PROVIDERS: PCP Internal Medicine; Visit Provider Internal Medicine
DX: E78.1 Pure hyperglyceridemia (principal); I10 Essential (primary) hypertension
CPT/HCPCS: 99214

== ENCOUNTER 2024-01-18 14:43 | Outpatient (AMB) | payer MEDICARE, SELFPAY ==
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
[2024-01-18 15:05] VITALS: BMI 37.6
== END 2024-01-19 15:19 | disposition home or self-care (01) ==
PROVIDERS: PCP Internal Medicine; Visit Provider Nurse Practitioner Family
DX: I65.01 Occlusion and stenosis of right vertebral artery (principal); I66.21 Occlusion and stenosis of right posterior cerebral artery; I63.81 Other cerebral infarction due to occlusion or stenosis of small artery
CPT/HCPCS: 99204

== ENCOUNTER → 2024-01-18 14:43 | Outpatient (BNVA) | payer MEDICARE, SELFPAY | PROVIDERS: PCP Internal Medicine; Visit Provider Nurse Practitioner Family | DX: I65.01 Occlusion and stenosis of right vertebral artery (principal); I66.21 Occlusion and stenosis of right posterior cerebral artery; Z86.73 Personal history of transient ischemic attack (TIA), and cerebral infarction without residual deficits | CPT/HCPCS: 99202 ==

== ENCOUNTER 2024-01-24 12:53 | Outpatient (REF) | payer MEDICARE, SELFPAY ==
--- NOTE | ~2024-01-24 | MR_ITS ---
EXAMINATION: MR ABDOMEN WITHOUT AND WITH CONTRAST CLINICAL INFORMATION: CRISS gene mutation. Risk of pancreatic cancer. COMPARISON: MRI abdomen March 12, 2023 TECHNIQUE: MR abdomen was performed without and with use of 8.5 mL intravenous Gadavist gadolinium contrast. Postcontrast images are performed in multiphase dynamic sequences. Imaging was performed in 3 planes. MRCP was also performed. FINDINGS: LUNG BASES: No pleural or pericardial effusion. LIVER, GALLBLADDER, AND BILIARY TREE: Hepatic steatosis. No focal hepatic lesion. There is mild to moderate intrahepatic biliary ductal dilatation. The common duct measures up to 1.2 cm at the elida hepatis and tapers to 8 mm distally. No intraductal filling defects.. The gallbladder is surgically absent. PANCREAS: Normal contour. Conventional ductal anatomy. No ductal dilatation. 6 mm cystic lesion in the head of the pancreas. 5 mm cystic lesion in the tail of the pancreas. Ductal communication cannot be definitively established. No abnormal enhancement. SPLEEN: Not enlarged. ADRENAL GLANDS: No adrenal mass. KIDNEYS AND URETERS: The kidneys are symmetric in size and enhancement. No hydronephrosis. No perinephric stranding. GASTROINTESTINAL TRACT: No bowel obstruction. No ascites or fluid collection. LYMPH NODES: No bulky lymphadenopathy. VASCULAR: Normal caliber abdominal aorta. MR/MR abdomen wo/w con IMPRESSION: Stable examination. No change in size or morphology of subcentimeter pancreatic cystic lesions in the head and tail of the pancreas. No abnormal enhancement. Follow-up imaging in 2 years is recommended. Stable dilatation of the biliary ductal system unchanged from March 12, 2023. Hepatic steatosis. Electronically signed by: Remigio Gatica MD 03/07/2024 10:13 AM [facility] VARMA
[2024-01-24] MEDS: gadobutroL 10 ML VIAL IVPUSH (13:47)
== END 2024-01-24 12:54 | disposition home or self-care (01) ==
LOC: HO.MRI 12:53
PROVIDERS: PCP Internal Medicine; Visit Provider Internal Medicine Medical Oncology
DX: K86.89 Other specified diseases of pancreas (principal); Z15.09 Genetic susceptibility to other malignant neoplasm
CPT/HCPCS: 74183; A9585

== ENCOUNTER 2024-03-07 14:03 | Outpatient (REF) | payer MEDICARE, SELFPAY ==
--- NOTE | ~2024-03-07 | US_ITS ---
EXAMINATION: MM DIAGNOSTIC DIGITAL BREAST TOMOSYNTHESIS, BILATERAL US BREAST LIMITED, LEFT MAMMOGRAPHY: CLINICAL INFORMATION: Diagnostic exam; 67-year-old female, 1 year follow-up for right breast lumpectomy/conservation treatment for right breast CA excised 01/30/2023. Also , history of left breast CA in 1992 status post lumpectomy, and 2 benign excisional biopsies right breast, one showing atypia. -Also, ultrasound 6 month follow-up for probably benign oval nodule in the left breast 2:00 axis. COMPARISON: Mammography: 01/07/2023, 12/29/2022. Ultrasound-guided biopsy right breast 01/07/2023. TECHNIQUE: Digital breast tomosynthesis is performed in both the craniocaudal and mediolateral oblique views along with computer-aided detection (CAD). Synthesized 2D images are generated from the tomosynthesis. FINDINGS: There are scattered areas of fibroglandular density (ACR BI-RADS breast composition Category b). There are expected postop and therapeutic changes in the right breast, upper central aspect with associated postsurgical scarring, mild skin thickening and trabecular thickening. There is a stable retroareolar benign bilobed mass with an associated open coil biopsy clip. There are no suspicious findings in the right breast or evidence of recurrence. Left breast shows a stable small 6 mm nodule 2:00 axis which will be evaluated with ultrasound. ULTRASOUND: CLINICAL INFORMATION: 6 month follow-up (for 1 year stability) for probably benign nodule in the left breast, 2:00 axis, most likely benign fibroadenoma or variant. COMPARISON: 09/09/2023, 01/07/2023. TECHNIQUE: Targeted sonographic evaluation left breast was performed using a high frequency linear transducer. Attention to the 2:00 axis was given. Selected archived documentation. FINDINGS: LEFT BREAST: There is a stable and unchanged oval mildly hypoechoic circumscribed mass, wider than tall, measuring 6 x 5 x 4 mm (previously 6 x 5 x 4 mm). This is most likely a benign fibroadenoma or variant. There is good through transmission and no internal color Doppler flow. It remains probably benign. One-year ultrasound follow-up recommended. US/US breast LT limited mamm only IMPRESSION: 1. There are no findings suspicious for malignancy in either breast. 2. There are expected post treatment-related changes right breast. No evidence of recurrence of disease. 3. Stable small 6 mm probably benign nodule in the 2:00 axis left breast. Recommend one year follow-up targeted left breast ultrasound to assess two-year stability and benignity. OVERALL ASSESSMENT: Mammography: BI-RADS 3 - Probably benign finding(s) - 12 month follow-up suggested Ultrasound: BI-RADS 3 - Probably benign finding(s) - 12 month follow-up suggested RECOMMENDATION: 12 month diagnostic follow up This patient's information was entered into a reminder system with a target due date for their next mammogram. Electronically signed by: Jered Arenas MD 03/07/2024 03:31 PM [facility]MA
== END 2024-03-07 14:04 | disposition home or self-care (01) ==
LOC: HO.MAMMO 14:03
PROVIDERS: PCP Internal Medicine; Visit Provider Internal Medicine Medical Oncology
DX: Z85.3 Personal history of malignant neoplasm of breast (principal)
CPT/HCPCS: 76642; 77062; 77066

== ENCOUNTER → 2024-03-07 14:30 | Outpatient (BNV) | payer MEDICARE, SELFPAY | PROVIDERS: PCP Internal Medicine; Visit Provider Radiology Diagnostic Radiology | DX: R92.8 Other abnormal and inconclusive findings on diagnostic imaging of breast (principal) | CPT/HCPCS: 76642; 77066; G0279 ==

== ENCOUNTER 2024-04-23 06:32 | Outpatient (REF) | payer MEDICARE, SELFPAY ==
[2024-04-23 11:50] LABS: Anion Gap 11 (12-20); Aspartate Amino Transferase 28 U/L (5-31); Blood Urea Nitrogen 13 mg/dL (9-16); Calcium 9.2 mg/dL (8.4-10.2); Carbon Dioxide 27 mmol/L (22-29); Chloride 110 mmol/L (96-108); Cholesterol 122 mg/dL (<200); Estimated Glomerular Filt Rate > 60; Glucose Fasting 116 mg/dL (60-99); HDL Cholesterol 42 mg/dL (>40); LDL Cholesterol Calculated 41 mg/dL (<100); Sodium 144 mmol/L (135-145); Triglycerides 198 mg/dL (<150)
[2024-04-23 12:13] LABS: Alanine Aminotransferase 31 U/L (0-31)
== END 2024-04-23 06:33 | disposition home or self-care (01) ==
LOC: HO.HMGCLDS 06:32
PROVIDERS: PCP Internal Medicine; Visit Provider Internal Medicine
DX: E78.1 Pure hyperglyceridemia (principal); I10 Essential (primary) hypertension
CPT/HCPCS: 36415; 80048; 80061; 84450; 84460

== ENCOUNTER 2024-07-27 13:42 | Outpatient (AMB) | payer MEDICARE, SELFPAY ==
[2024-07-27 14:37] VITALS: BP 140/80; PULSE 86; O2SAT 96; BMI 39.0
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
== END 2024-07-27 15:27 | disposition home or self-care (01) ==
LOC: HO.HSMS 13:43
PROVIDERS: PCP Internal Medicine; Visit Provider Nurse Practitioner Family
DX: I65.01 Occlusion and stenosis of right vertebral artery (principal); I66.21 Occlusion and stenosis of right posterior cerebral artery; I63.81 Other cerebral infarction due to occlusion or stenosis of small artery
CPT/HCPCS: 99214

== ENCOUNTER → 2024-07-27 13:42 | Outpatient (BNVA) | payer MEDICARE, SELFPAY | PROVIDERS: PCP Internal Medicine; Visit Provider Nurse Practitioner Family | DX: I65.01 Occlusion and stenosis of right vertebral artery (principal); I66.21 Occlusion and stenosis of right posterior cerebral artery; Z86.73 Personal history of transient ischemic attack (TIA), and cerebral infarction without residual deficits | CPT/HCPCS: 99212 ==

== ENCOUNTER 2024-08-20 06:42 | Outpatient (REF) | payer MEDICARE, SELFPAY ==
[2024-08-20 11:36] LABS: MANUAL DIFF FLAG NO
[2024-08-20 11:48] LABS: Basophils Percent Auto 0.6 % (0-2); Eosinophils Absolute Auto 0.2 X10*3/uL (0.0-0.4); Hemoglobin 12.8 g/dl (12.0-16.0); Imm Gran Abs Auto 0.02 X10*3/uL (0.00-0.03); Imm Gran Pct Auto 0.4 % (0.0-0.4); Lymphocytes Absolute Auto 2.1 X10*3/uL (1.2-4.9); Lymphocytes Percent Auto 42.4 % (20-40); Mean Corpuscular Hemoglobin 26.6 pg (27.0-33.0); Mean Corpuscular Volume 83.2 fL (80.0-98.0); Mean Platelet Volume 11.4 fL (9.4-12.3); Monocytes Absolute Auto 0.5 X10*3/uL (0.1-1.2); Monocytes Percent Auto 9.7 % (2-11); Neutrophils Absolute Auto 2.2 x10*3/uL (2.0-8.3); Neutrophils Percent Auto 43.9 % (45-73); Platelet Count 194 X10*3/uL (160-400); Red Blood Count 4.81 X10*6/uL (4.20-5.50); Red Cell Distribution Width 14.6 % (11.0-16.0)
[2024-08-20 11:55] LABS: Estimated Average Glucose 128 mg/dL; Hemoglobin A1C 147.1043 umol/L; Hemoglobin A1c % 6.1 % (<6.0); Total Hemoglobin (HGBA1C) 3424.0643 umol/L
[2024-08-20 12:06] LABS: Alanine Aminotransferase 75 U/L (0-31); Albumin Level 4.1 g/dL (3.5-5.0); Alkaline Phosphatase 53 U/L (39-117); Anion Gap 14 (12-20); Aspartate Amino Transferase 57 U/L (5-31); Bilirubin Total 0.4 mg/dL (0.0-1.0); Blood Urea Nitrogen 8 mg/dL (9-16); Calcium 9.3 mg/dL (8.4-10.2); Carbon Dioxide 26 mmol/L (22-29); Chloride 106 mmol/L (96-108); Cholesterol 156 mg/dL (<200); Estimated Glomerular Filt Rate > 60; Glucose Random 115 mg/dL (60-115); HDL Cholesterol 45 mg/dL (>40); LDL Cholesterol Calculated 71 mg/dL (<100); Potassium 4.1 mmol/L (3.3-5.1); Sodium 142 mmol/L (135-145); Total Protein 6.9 g/dL (6.5-8.0); Triglycerides 201 mg/dL (<150)
[2024-08-20 12:25] LABS: Vitamin D 25-OH Total 50.9 ng/mL (>30)
== END 2024-08-20 06:43 | disposition home or self-care (01) ==
LOC: HO.HMGCLDS 06:42
PROVIDERS: PCP Internal Medicine; Referring Provider Internal Medicine Medical Oncology; Visit Provider Internal Medicine
DX: Z85.3 Personal history of malignant neoplasm of breast (principal); R73.01 Impaired fasting glucose; E89.40 Asymptomatic postprocedural ovarian failure; M81.0 Age-related osteoporosis without current pathological fracture; I65.01 Occlusion and stenosis of right vertebral artery; E78.1 Pure hyperglyceridemia
CPT/HCPCS: 36415; 80053; 80061; 82306; 83036; 85025

== ENCOUNTER 2024-09-01 14:08 | Outpatient (AMB) | payer MEDICARE, SELFPAY ==
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
[2024-09-01 14:53] VITALS: BP 172/100; PULSE 89; RESP 26; TEMP 36.8; O2SAT 97; BMI 39.8
== END 2024-09-01 15:52 | disposition home or self-care (01) ==
LOC: HO.HMCC 14:09
PROVIDERS: PCP Internal Medicine; Visit Provider Internal Medicine
DX: Z00.01 Encounter for general adult medical examination with abnormal findings (principal); F41.9 Anxiety disorder, unspecified; F32.A Depression, unspecified; Z85.3 Personal history of malignant neoplasm of breast; R73.03 Prediabetes; R73.01 Impaired fasting glucose; I10 Essential (primary) hypertension; I69.30 Unspecified sequelae of cerebral infarction; E78.1 Pure hyperglyceridemia; Z71.89 Other specified counseling; Z00.00 Encounter for general adult medical examination without abnormal findings

== ENCOUNTER → 2024-09-01 14:08 | Outpatient (BNVA) | payer MEDICARE, SELFPAY | PROVIDERS: PCP Internal Medicine; Visit Provider Internal Medicine | DX: Z00.01 Encounter for general adult medical examination with abnormal findings (principal); F41.9 Anxiety disorder, unspecified; F32.A Depression, unspecified; R73.03 Prediabetes; R73.01 Impaired fasting glucose; I10 Essential (primary) hypertension; E78.1 Pure hyperglyceridemia; I69.398 Other sequelae of cerebral infarction; H53.9 Unspecified visual disturbance; I69.328 Other speech and language deficits following cerebral infarction; Z85.3 Personal history of malignant neoplasm of breast; Z79.82 Long term (current) use of aspirin; Z79.899 Other long term (current) drug therapy; Z71.89 Other specified counseling; Z13.31 Encounter for screening for depression | CPT/HCPCS: 96127; 99397; 99497 ==

== ENCOUNTER → 2024-09-15 14:21 | Outpatient (BNVA) | payer MEDICARE, SELFPAY | PROVIDERS: PCP Internal Medicine ==

== ENCOUNTER 2024-11-15 14:22 | Outpatient (AMB) | payer MEDICARE, SELFPAY ==
[2024-11-15 14:26] VITALS: BP 146/92; PULSE 108; O2SAT 96; BMI 38.6
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
--- OUTSIDE RECORDS SUMMARY | 2024-11-15 15:03 | XMS_ITS | Encounter Summary ---
Author Organization [facility] Address [address] [place] [address] Phone Care Team Providers Care Family Centered Specialist Name Role Phone Nicol Burton MD Primary Care Provider Encounter Details Date Type Department Care Team (Late st Contact Info) Description 02/22/2024 Telephone [facility] [place] Neuro[place] [address], [address] [place] [address] Erik Pacheco MD [address] [address] [email or web address] Social History Tobacco Use Types Packs/Day Years Used Date Smoking Tobacco: Never Smokeless Tobacco: Never Education Answer Date Recorded Are you interested in more education? Not on tony e 02/25/2023 Are you concerned about learning? Not on file 02/25/2023 No 02/25/2023 No 02/25/2023 Digital Access Answer Date Recorded No 02/25/2023 No 02/25/2023 Reliable internet access at home? Not on file 02/25/2023 Device with a working camera? Not on file Comments Unknown Sex and Gender Information Value Date Recorded Sex Assigned at Not on file Legal Sex Female 10:35 PM EDT Gender Identity Not on file Sexual Orientation Not on file documented as of this encounter Plan of Treatment Upcoming Encounters Date Type Department Care Team (Late st Contact Info) Description 06/22/2025 2:30 PM EDT Office Visit [facility] [place] [facility] [address] [place] [address] Jayla Garcia MD [address] [place] [address] [email or web address] documented as of this encounter Visit Diagnoses Not on filedocumented in this encounter Care Teams Family Centered Specialist Relationship Specialty Start Date End Date Nicol Burton MD [address] [place] [address] PCP - General Internal Medicine 03/19/23 documented as of this encounter Additional Source Comments The information contained in this document represents components of the legal health record. It is not the complete legal health record.[facility]
== END 2024-11-15 14:46 | disposition home or self-care (01) ==
LOC: HO.HKA 14:23
PROVIDERS: PCP Internal Medicine; Referring Provider Internal Medicine; Visit Provider Internal Medicine Hypertension Specialist
DX: I10 Essential (primary) hypertension (principal)
CPT/HCPCS: 99204

== ENCOUNTER → 2024-11-15 14:22 | Outpatient (BNVA) | payer MEDICARE, SELFPAY | PROVIDERS: PCP Internal Medicine; Referring Provider Internal Medicine; Visit Provider Internal Medicine Hypertension Specialist | DX: I10 Essential (primary) hypertension (principal) | CPT/HCPCS: 99202 ==

== ENCOUNTER 2024-12-20 13:46 | Outpatient (AMB) | payer MEDICARE, SELFPAY ==
[2024-12-20 13:56] VITALS: BP 140/80; PULSE 89; BMI 38.3
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
--- OUTSIDE RECORDS SUMMARY | 2024-12-20 16:29 | XMS_ITS | Clinical Summary ---
Author Organization [facility] Address [address] [place] [address] Phone Care Team Providers Care Drain Layer Name Role Phone Nicol Burton MD Primary Care Provider Allergies Active Allergy Reactions Criticality Noted Date Comments Lisinopril Rash Low 03/19/2023 Medications tamoxifen (NOLVADEX) 20 MG tablet Take 1 tablet by mouth every morning. 02/24/2023 Active amLODIPine (NORVASC) 5 MG tablet 03/17/2023 Active cholecalciferol (VITAMIN D3) 2,000 unit capsule Take 1 capsule by mouth every morning. 02/10/2023 Active ibuprofen (ADVIL,MOTRIN) 600 MG tablet Take 200 mg by mouth every 6 (six) hours as needed. 01/30/2023 Active biotin 1 mg tablet Take 1,000 mcg by mouth 3 (three) times a day. Active omega-3 acid ethyl esters (LOVAZA) 1 gram capsule 12/02/2023 Active aspirin 81 mg chewable tablet Take 81 mg by mouth daily. 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 No 03/15/2024 Education Answer Date Recorded Are you interested in more education? Not on tony e 02/25/2023 Are you concerned about learning? Not on file 02/25/2023 No 02/25/2023 No 02/25/2023 Food Answer Date Recorded Within the past 6 months we worried whether our food would run out before we got money to buy more. Never True 03/15/2024 Within the past 6 months the food we bought just didn't last and we didn't have enough money to get more. Never True Residential Stability Answer Date Recor ded What is your housing situation today? I have quintin sing 03/15/2024 How many times have you move d in the past 12 months? Zero (I did not move) 03/15/2024 Paying for Meds Answer Date Recorded Do you have trouble paying for medicines? No 03/15/2024 Paying Utility Bills Answer Date Record ed Do you have trouble paying your heating or elect ricity bill? No 03/15/2024 Transportation Answer Date Recorded Has the lack of transportati on kept you from medical appointments or from getting medications? I choose not to answer 03/15/2024 Digital Access Answer Date Recorded No 03/15/2024 Yes 03/15/2024 Do you have reliable internet access at home? Ye s 03/15/2024 Do you have a device (e.g., phone, tablet, computer) with a working camera? Yes 03/15/2024 Comments Unknown Sex and Gender Information Value Date Recorded Sex Assigned at Not on file Legal Sex Female 10:35 PM EDT Gender Identity Not on file Sexual Orientation Not on file Last Filed Vital Signs Vital Sign Reading Time Taken Comments Blood Pressure 167/97 06/16/2024 1:30 PM EST Pulse 75 06/16/2024 1:30 PM EST Temperature 36.3 C (97.3 F) 06/16/2024 1:30 PM EST Respiratory Rate 16 06/16/2024 1:30 PM EST Oxygen Saturation 96% 06/16/2024 1:30 PM EST Inhaled Oxygen Concentration - - Weight 86.5 kg (190 lb 9.6 oz) 06/16/2024 1:30 P M EST Height - - Body Mass Index - - Plan of Treatment Upcoming Encounters Date Type Department Care Team (Late st Contact Info) Description 06/22/2025 2:30 PM EDT Office Visit [facility] [place] [facility] Rad Onc [address] [place] [address] Jayla Garcia MD [address] [place] [address] [email or web address] Health Maintenance Due Date Last Done Comments Adult Td,Tdap Booster 1954 LIPID PANEL 1954 DEPRESSION SCREENING 1966 HEPATITIS C SCREENING 1972 PNEUMOCOCCAL VACCINES (50+ years) (1 of 2 - PCV) 1973 ZOSTER VACCINES (1 of 2) 1973 COLOGUARD 08/14/1999 COLONOSCOPY 08/14/1999 COLORECTAL CANCER SCREENING 08/14/1999 FIT TEST 08/14/1999 FOBT 08/14/1999 SIGMOIDOSCOPY 08/14/1999 VIRTUAL COLONOSCOPY 08/14/1999 OSTEOPOROSIS SCREENING INITI AL (ONE-TIME) 08/14/2019 INFLUENZA VACCINE (#1) 2024 COVID-19 VACCINE (1 - 2023-2 5 season) 2024 MAMMOGRAM 01/23/2025 01/23/2023, 01/07/2023, 12/29/2022 RSV VACCINE (1 - 1-dose 75+ series) 2029 SMOKING STATUS SCREENING (On ce After 26 Yrs) Completed 03/19/2023 HEPATITIS A VACCINES Aged Out No long er eligible based on patient's age to complete this topic HIB VACCINES Aged Out No longer eligi ble based on patient's age to complete this topic MENINGOCOCCAL VACCINES (ACWY) Aged Out No longer eligible based on patient's age to complete this topic MENINGOCOCCAL VACCINES (B) Aged Out N o longer eligible based on patient's age to complete this topic Medical Devices Not on file Procedures Procedure Name Priority Date/Time Associated Diagnosis Comments BI MAMMOGRAM OUTSIDE (NO INTERPRETATION) Routine 01/23/2023 12:00 AM EDT from Last 3 Months or Most Recently Relevant to Health Maintenance Results * Mammogram Outside (No Interpretation) (01/23/2023 12:00 AM EDT) Narrative SYSTEMGENERATED, DOCUMENTATION - 02/26/2023 10:07 AM EST This study is for PACS storage only and not for interpretation. us Unknown Unknown MD [facility] OUTSIDE IMAGING W/OUT INT ERPRETATION Final Result from Last 3 Months or Most Recently Relevant to Health Maintenance Insurance AET[employer] [facility] MEDICARE REPLACEMENT AETNA [facility] MEDICARE REPLACEMENT [facility] RE[facility] MEDICARE REPLACEMENT [facility] MEDICARE REPLACEMENT [employer] PPO MEDICARE REPLACEMENT CIG DENTAL Advance Directives For more information, please contact: [phone] (9AM - 5PM [facility], Thursday-Thursday) Documents on File Type Date Recorded Patient Tariff 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 It is not the complete legal health record.[facility]
--- OUTSIDE RECORDS SUMMARY | 2024-12-20 16:29 | XMS_ITS | Encounter Summary ---
Author Organization [facility] Address [address] [place] [address] Phone Care Team Providers Care Sales And Service Agent Name Role Phone Nicol Burton MD Primary Care Provider Encounter Details Date Type Department Care Team (Late st Contact Info) Description 02/22/2024 Telephone [facility] Neuro[place] [address] [place], 7th Floor, [address] [place] [address] Erik Pacheco MD [address] [address] [email or web address] Social History Tobacco Use Types Packs/Day Years [...] Description 06/22/2025 2:30 PM EDT Office Visit [facility] Rad Onc [address] [place] [address] Jayla Garcia MD [address] [place] [address] [email or web address] documented as of this encounter Visit Diagnoses Not on filedocumented in this encounter Care Teams Sales And Service Agent Relationship Specialty Start Date End Date Nicol Burton MD [address] [place] [address] PCP - General Internal Medicine 03/19/23 documented as of this encounter Additional Source Comments The information contained in this document represents components of the legal health record. It is not the complete legal health record.[facility]
== END 2024-12-20 14:34 | disposition home or self-care (01) ==
LOC: HO.HCS 13:47
PROVIDERS: PCP Internal Medicine; Visit Provider Internal Medicine Cardiovascular Disease
DX: R94.31 Abnormal electrocardiogram [ECG] [EKG] (principal)
CPT/HCPCS: 93010; 99214; G2211

== ENCOUNTER → 2024-12-20 13:46 | Outpatient (BNVA) | payer MEDICARE, SELFPAY | PROVIDERS: PCP Internal Medicine; Visit Provider Internal Medicine Cardiovascular Disease | DX: I10 Essential (primary) hypertension (principal); Z86.73 Personal history of transient ischemic attack (TIA), and cerebral infarction without residual deficits; Z79.899 Other long term (current) drug therapy; R94.31 Abnormal electrocardiogram [ECG] [EKG] | CPT/HCPCS: 93005; 93786; 93788; 99212 ==

== ENCOUNTER 2024-12-20 14:37 | Outpatient (AMB) | payer MEDICARE, SELFPAY ==
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
[2024-12-20 14:42] VITALS: BP 150/84; PULSE 90; O2SAT 95
== END 2024-12-20 15:12 | disposition home or self-care (01) ==
PROVIDERS: PCP Internal Medicine; Visit Provider Internal Medicine Hypertension Specialist
DX: I10 Essential (primary) hypertension (principal)
CPT/HCPCS: 93790; 99214

== ENCOUNTER 2024-12-24 06:55 | Outpatient (REF) | payer MEDICARE, SELFPAY ==
--- OUTSIDE RECORDS SUMMARY | 2024-12-24 06:58 | XMS_ITS | Encounter Summary ---
Author Organization [facility] Address [address] [place] [address] Phone Care Team Providers Care Strategic Manager Name Role Phone Nicol Burton MD Primary Care Provider Encounter Details Date Type Department Care Team (Late st Contact Info) Description 02/22/2024 Telephone [facility] [place] [address] [facility], 7th [address], [address] [place] [address] Erik Pacheco MD [address] [address] [email or web address] Social History Tobacco Use Types Packs/Day Years [...] Description 06/22/2025 2:30 PM EDT Office Visit [facility] Rad Onc [address] [place] [address] Jayla Garcia MD [address] [place] [address] [email or web address] documented as of this encounter Visit Diagnoses Not on filedocumented in this encounter Care Teams Strategic Manager Relationship Specialty Start Date End Date Nicol Burton MD [address] [place] [address] PCP - General Internal Medicine 03/19/23 documented as of this encounter Additional Source Comments The information contained in this document represents components of the legal health record. It is not the complete legal health record.[facility]
--- OUTSIDE RECORDS SUMMARY | 2024-12-24 06:58 | XMS_ITS | Clinical Summary ---
Author Organization [facility] Address [address] [place] [address] Phone Care Team Providers Care Agriculture Inspector Name Role Phone Nicol Burton MD Primary [...] Description 06/22/2025 2:30 PM EDT Office Visit [facility] Rad Onc [address] [place] [address] Jayla Garcia MD [address] [place] [address] [email or web address] Health Maintenance Due Date [...] Recently Relevant to Health Maintenance Insurance [facility] MEDICARE REPLACEMENT [facility] MEDIC[facility] RE[facility]AC[facility] MEDICARE REPLACEMENT [facility] MEDICARE REPLACEMENT AET[employer] PPO MEDICARE REPLACEMENT CIG DENTAL Advance Directives For more information, please contact: [phone] (9AM - 5PM [facility], Thursday-Thursday) Documents on File Type Date Recorded Patient Parole Or Probation Officer Expl anation Healthcare Proxy 03/19/2023 [facility] Care Teams Agriculture Inspector Relationship Specialty Start Date End Date Nicol Burton MD [address] [place] [address] PCP - General Internal Medicine 03/19/23 Additional Source Comments The information contained in this document represents components of the legal health record. It is not the complete legal health record.[facility]
[2024-12-24 11:15] LABS: MANUAL DIFF FLAG NO
[2024-12-24 11:21] LABS: Hematocrit 40.3 % (37.0-47.0); Hemoglobin 13.2 g/dl (12.0-16.0); Imm Gran Abs Auto 0.02 X10*3/uL (0.00-0.03); Imm Gran Pct Auto 0.3 % (0.0-0.4); Lymphocytes Absolute Auto 2.3 X10*3/uL (1.2-4.9); Mean Corpuscular HGB Conc 32.8 g/dl (31.0-35.0); Mean Corpuscular Hemoglobin 26.6 pg (27.0-33.0); Mean Corpuscular Volume 81.1 fL (80.0-98.0); NRBC Abs Auto 0.000 X10*3/uL (0.0-0.012); NRBC Pct Auto 0.0 /100WBC (0.0-0.2); Platelet Count 221 X10*3/uL (160-400); Red Blood Count 4.97 X10*6/uL (4.20-5.50); White Blood Count 7.4 X10*3/uL (4.8-10.8)
[2024-12-24 11:34] LABS: Hemoglobin A1C 160.6522 umol/L; Total Hemoglobin (HGBA1C) 3446.9500 umol/L
[2024-12-24 11:54] LABS: Albumin Level 4.4 g/dL (3.5-5.0); Alkaline Phosphatase 59 U/L (39-117); Anion Gap 14 (12-20); Aspartate Amino Transferase 46 U/L (5-31); Blood Urea Nitrogen 13 mg/dL (9-16); Calcium 9.3 mg/dL (8.4-10.2); Carbon Dioxide 26 mmol/L (22-29); Chloride 106 mmol/L (96-108); Cholesterol 117 mg/dL (<200); Estimated Glomerular Filt Rate > 60; HDL Cholesterol 44 mg/dL (>40); Potassium 3.7 mmol/L (3.3-5.1); Sodium 142 mmol/L (135-145); Total Protein 6.8 g/dL (6.5-8.0); Triglycerides 133 mg/dL (<150)
[2024-12-24 12:32] LABS: Alanine Aminotransferase 62 U/L (0-31)
== END 2024-12-24 06:56 | disposition home or self-care (01) ==
LOC: HO.HMGCLDS 06:55
PROVIDERS: PCP Internal Medicine; Referring Provider Internal Medicine Medical Oncology; Visit Provider Internal Medicine
DX: I10 Essential (primary) hypertension (principal); M81.0 Age-related osteoporosis without current pathological fracture; E78.1 Pure hyperglyceridemia; R73.01 Impaired fasting glucose; R73.03 Prediabetes; F41.9 Anxiety disorder, unspecified; F32.A Depression, unspecified; I63.9 Cerebral infarction, unspecified; I69.30 Unspecified sequelae of cerebral infarction; E89.40 Asymptomatic postprocedural ovarian failure; Z85.3 Personal history of malignant neoplasm of breast
CPT/HCPCS: 36415; 80053; 80061; 82306; 82550; 83036; 85025

== ENCOUNTER 2025-01-05 14:31 | Outpatient (AMB) | payer MEDICARE, SELFPAY ==
[2025-01-05 14:40] VITALS: BP 158/92; PULSE 81; RESP 17; TEMP 36.7; O2SAT 97; BMI 38.6
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
[2025-01-05 15:20] VITALS: BP 140/90
--- OUTSIDE RECORDS SUMMARY | 2025-01-05 18:54 | XMS_ITS | Encounter Summary ---
Author Organization [facility] Address [address] [place] [address] Phone Care Team Providers Care Microarray Operations Vice President Name Role Phone Nicol Burton MD Primary Care Provider Encounter Details Date Type Department Care Team (Late st Contact Info) Description 02/22/2024 Telephone [facility] Neurosurgery [address], 7th Floor, [address] [place] [address] Erik Pacheco MD [address] [address] [email or web address] Social History Tobacco Use Types Packs/Day Years [...] Description 06/22/2025 2:30 PM EDT Office Visit [facility] On[facility] [address] [place] [address] Jayla Garcia MD [address] [place] [address] [email or web address] documented as of this encounter Visit Diagnoses Not on filedocumented in this encounter Care Teams Microarray Operations Vice President Relationship Specialty Start Date End Date Nicol Burton MD [address] [place] [address] PCP - General Internal Medicine 03/19/23 documented as of this encounter Additional Source Comments The information contained in this document represents components of the legal health record. It is not the complete legal health record.[facility]
--- OUTSIDE RECORDS SUMMARY | 2025-01-05 18:54 | XMS_ITS | Clinical Summary ---
Author Organization [facility] Address [address] [place] [address] Phone Care Team Providers Care Lead Data Entry Operator Name Role Phone Nicol Burton MD Primary [...] Description 06/22/2025 2:30 PM EDT Office Visit [facility] Rad Onc [address] [place] [address] Jayla Garcia MD [address] [place] [address] [email or web address] Health Maintenance Due Date [...] Recently Relevant to Health Maintenance Insurance [facility] [facility] MEDICARE REPLACEMENT [facility] [facility] MEDIC[facility] RE[facility] RE[facility] MEDICARE REPLACEMENT [facility] MEDICARE REPLACEMENT [employer] PPO MEDICARE REPLACEMENT CIG DENTAL Advance Directives For more information, please contact: [phone] (9AM - 5PM [facility], Thursday-Thursday) Documents on File Type Date Recorded Patient Film Inspector Expl anation Healthcare Proxy 03/19/2023 [facility] Care Teams Lead Data Entry Operator Relationship Specialty Start Date End Date Nicol Burton MD [address] [address] PCP - General Internal Medicine 03/19/23 Additional Source Comments The information contained in this document represents components of the legal health record. It is not the complete legal health record.[facility]
== END 2025-01-05 16:54 | disposition home or self-care (01) ==
LOC: HO.HMCC 14:32
PROVIDERS: PCP Internal Medicine; Visit Provider Internal Medicine
DX: I10 Essential (primary) hypertension (principal); E78.1 Pure hyperglyceridemia; R73.03 Prediabetes; I69.30 Unspecified sequelae of cerebral infarction

== ENCOUNTER → 2025-01-05 14:31 | Outpatient (BNVA) | payer MEDICARE, SELFPAY | PROVIDERS: PCP Internal Medicine; Visit Provider Internal Medicine | DX: I10 Essential (primary) hypertension (principal); E78.1 Pure hyperglyceridemia; R73.03 Prediabetes; I69.30 Unspecified sequelae of cerebral infarction; Z79.82 Long term (current) use of aspirin; Z79.899 Other long term (current) drug therapy; Z13.30 Encounter for screening examination for mental health and behavioral disorders, unspecified | CPT/HCPCS: 96127; 99212 ==

== ENCOUNTER 2025-01-17 14:20 | Outpatient (AMB) | payer MEDICARE, SELFPAY ==
[2025-01-17 14:31] VITALS: BP 132/76; PULSE 89; O2SAT 96; BMI 38.2
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
--- OUTSIDE RECORDS SUMMARY | 2025-01-17 17:41 | XMS_ITS | Encounter Summary ---
Author Organization [facility] Address [address] [place] [address] Phone Care Team Providers Care Framing Machine Tender Name Role Phone Nicol Burton MD Primary Care Provider Encounter Details Date Type Department Care Team (Late st Contact Info) Description 02/22/2024 Telephone [facility] [place] [address] 7th [address], [address] [place] [address] Erik Pacheco MD [address] [address] [email or web address] Social History Tobacco Use Types Packs/Day Years [...] Description 06/22/2025 2:30 PM EDT Office Visit [facility] On[facility] [address] [place] [address] Jayla Garcia MD [address] [place] [address] [email or web address] documented as of this encounter Visit Diagnoses Not on filedocumented in this encounter Care Teams Framing Machine Tender Relationship Specialty Start Date End Date Nicol Burton MD [address] [place] [address] PCP - General Internal Medicine 03/19/23 documented as of this encounter Additional Source Comments The information contained in this document represents components of the legal health record. It is not the complete legal health record.[facility]
--- OUTSIDE RECORDS SUMMARY | 2025-01-17 17:42 | XMS_ITS | Clinical Summary ---
Author Organization [facility] Address [address] [place] [address] Phone Care Team Providers Care Molder Helper Name Role Phone Nicol Burton MD Primary [...] Description 06/22/2025 2:30 PM EDT Office Visit [facility] Rad Onc [address] [place] [address] Jayla Garcia MD 30 [place] [address] [email or web address] Health Maintenance Due Date Last Done Comments [...] VACCINE (#1) 2024 COVID-19 VACCINE (1 - 2024-2 6 season) 2024 MAMMOGRAM 01/23/2025 01/23/2023, 01/07/2023, 12/29/2022 [...] Recently Relevant to Health Maintenance Insurance [employer] [facility] MEDICARE REPLACEMENT [facility] [facility] MEDICARE RE[facility]AC[facility] RE[facility] MEDICARE REPLACEMENT [facility] MEDICARE REPLACEMENT [employer] PPO MEDICARE REPLACEMENT CIG DENTAL Advance Directives For more information, please contact: [phone] (9AM - 5PM [facility], Thursday-Thursday) Documents on File Type Date Recorded Patient Cad Operator Expl anation Healthcare Proxy 03/19/2023 [facility] Care Teams Molder Helper Relationship Specialty Start Date End Date Nicol Burton MD [address] [place] [address] PCP - General Internal Medicine 03/19/23 Additional Source Comments The information contained in this document represents components of the legal health record. It is not the complete legal health record.[facility]
== END 2025-01-17 14:44 | disposition home or self-care (01) ==
LOC: HO.HKA 14:21
PROVIDERS: PCP Internal Medicine; Visit Provider Internal Medicine Hypertension Specialist
DX: I10 Essential (primary) hypertension (principal)
CPT/HCPCS: 99214

== ENCOUNTER → 2025-01-17 14:20 | Outpatient (BNVA) | payer MEDICARE, SELFPAY | PROVIDERS: PCP Internal Medicine; Visit Provider Internal Medicine Hypertension Specialist | DX: I10 Essential (primary) hypertension (principal) | CPT/HCPCS: 99212 ==

== ENCOUNTER 2025-01-18 13:16 | Outpatient (REF) | payer MEDICARE, SELFPAY | END 2025-01-18 13:17 | disposition home or self-care (01) | LOC: HO.MS 13:16 | PROVIDERS: PCP Internal Medicine; Visit Provider Internal Medicine Cardiovascular Disease | DX: I48.20 Chronic atrial fibrillation, unspecified (principal); Z53.8 Procedure and treatment not carried out for other reasons | CPT/HCPCS: 33285; J2004 ==

== ENCOUNTER → 2025-02-07 14:29 | Outpatient (REF) | payer MEDICARE, SELFPAY ==
--- NOTE | 2025-02-07 14:32 | CA_ITS ---
Transthoracic Echocardiogram Amended Patient (Last, First, Middle): Kym Hart, Gender: F Date of : 1955 Age: 69 Procedure Date: 02/07/2025 Procedure Type: Transthoracic Echocardiogram Location: OP Height: 149. cm Weight: 83.92 kg BSA: 1.78 m2 Heart Rate: bpm BP: 138 / 65 mmHg Noc Analyst: KEDAR Referring MD: Raj Hernandez MD Symptoms: R94.31 - Abnormal electrocardiogram [ECG] [EKG] Study Quality: Adequate/contrast ECG Rhythm: Sinus Conclusions: - The left ventricular systolic function is normal. The visually estimated ejection fraction is between 60-65%. - There is moderately increased left ventricular wall thickness. - There is mild calcification of the aortic valve. - No obvious valvular pathology seen on this study. Findings Procedure Information Contrast agent, definity, is being given per protocol without apparent complications. Left Ventricle Normal left ventricular cavity size. There is moderately increased left ventricular wall thickness. The left ventricular systolic function is normal. The visually estimated ejection fraction is between 60-65%. There is no evidence of regional wall motion abnormalities. Diastolic function is normal for age. Right Ventricle Normal right ventricular cavity size. There is mildly decreased right ventricular systolic function. Atria Both atria are normal in size. Aortic Valve There is a normal trileaflet aortic valve. There is mild calcification of the aortic valve. There is no aortic valve stenosis. There is no aortic valve regurgitation. Mitral Valve The mitral valve appears normal. There is no mitral valve regurgitation. There is no mitral valve stenosis. Pulmonic Valve The pulmonic valve is likely normal. Tricuspid Valve There is trace tricuspid valve regurgitation. There is no evidence of pulmonary hypertension. Great Vessels The aortic arch is normal in size. Small plaque is seen in the sino tubular ridge. Venous The inferior vena cava is mildly dilated and collapses greater than 50% with inspiration. Pericardium/Pleural There is no evidence of pericardial effusion. Prior Study Comparison No significant change compared to prior study dated: 08/07/2023. Recommendations, Care & Conclusions No obvious valvular pathology seen on this study. Measurements 2D Linear Measurements IVSd: 1.31 0.6-0.9/0.6-1.0 cm LVIDd: 3.25 3.9-5.3/4.2-5.9 cm LVIDd Index: 1.83 2.4-3.2/2.2-3.1 cm/m2 LVIDs: 2.43 2.0-3.6 cm LVPWd: 1.31 0.7-1.1 cm LA Diam: 3.50 2.7-3.8/3.0-4.0 cm LAIDs Index: 1.97 1.5-2.3 cm/m2 LV Mass: 174.65 67-162/88-224 g LV Mass Index: 98.12 43-95/49-115 g/m2 LVOT Diam: 2.00 3.0+(-)1.3 cm 2D Volumes LA Vol: 26.90 2D Systolic Function EF 4C: 73.20 >55% EF 2C: 62.40 >55% EF BiP: 70.20 >55% Mitral Valve MV Pk E: 0.73 MV PK A: 0.94 MV Decel Time: 271.00 E/A: 0.80 E'Lateral: 6.42 E'Medial: 5.44 E/E' Med: 13.40 E/E' Lat: 11.30 PHT: 80.00 MVA PHT: 2.75 Decel Magoffin: 2.68 Aortic Valve AoV Pk Carl: 1.29 AoV Mn Carl: 0.93 AoV VTI: 0.28 AoV Pk Grad: 7.00 Aov Mn Grad: 4.00 RITA Cont.VTI: 2.11 LVOT LVOT Pk Carl: 0.95 LVOT Mn Carl: 0.64 LVOT VTI: 0.19 LVOT Pk Grad: 4.00 LVOT Mn Grad: 2.00 LVOT Diam: 2.00 LVOT Area: 3.14 Diastolic Function MV Pk E: 0.73 MV Pk A: 0.94 E/A: 0.80 E'Medial: 5.44 E/E' Med: 13.40 E' Laterial: 6.42 E/E' Lat: 11.30 Right Ventricle TAPSE (mm): 16.40 TVS' Carl: 9.36 Tricuspid Valve RA Press: 8.00 Great Vessels Aorta Sinus of Valsalva: 3.50 2.0-3.5 cm Ao Asc: 3.30 2.1-3.4 cm Ao Arch: 2.40 Pulmonary Valve PV Pk Carl: 0.96 Peak PV Grad: 4.00 Updated in Other Vendor System with Status of Final Jorge Augustine MD electronically signed on 02/08/2025 4:39:18 PM with status of Final
--- OUTSIDE RECORDS SUMMARY | 2025-02-07 18:51 | XMS_ITS | Clinical Summary ---
Author Organization [facility] Address [address] [place] [address] Phone Care Team Providers Care Director Hair Name Role Phone Nicol Burton MD Primary [...] Description 06/22/2025 2:30 PM EDT Office [place] [facility] Rad Onc [address] [place] [address] Jayla Garcia MD [address] [place] [address] [email or web address] Health Maintenance Due Date Last Done Comments [...] Recently Relevant to Health Maintenance Insurance [employer] [facility] MEDICARE REPLACEMENT [employer] [facility] MEDICARE REPLAC[facility] MED[facility] RE[facility]ACEMENT [employer] PPO MEDICARE REPLACEMENT CIG DENTAL Advance Directives For more information, please contact: [phone] (9AM - 5PM [facility], Thursday-Thursday) Documents on File Type Date Recorded Patient Miller Head Assistant Wet Process Expl anation Healthcare Proxy 03/19/2023 [facility] Care Teams Director Hair Relationship Specialty Start Date End Date Nicol Burton MD [address] [place] [address] PCP - General Internal Medicine 03/19/23 Additional Source Comments The information contained in this document represents components of the legal health record. It is not the complete legal health record.[facility]
--- OUTSIDE RECORDS SUMMARY | 2025-02-07 18:51 | XMS_ITS | Encounter Summary ---
Author Organization [facility] Address [address] [place] [address] Phone Care Team Providers Care Model Maker Fiberglass Name Role Phone Nicol Burton MD Primary Care Provider Encounter Details Date Type Department Care Team (Late st Contact Info) Description 02/22/2024 Telephone [facility] [place] [address] 7th [address], [address] [place] [address] Erik Pacheco MD [address] [address] [email or web address] Social History Tobacco Use Types Packs/Day [...] Description 06/22/2025 2:30 PM EDT Office Visit [facility] [address] [place] [address] Jayla Garcia MD 30 [place] [address] [email or web address] documented as of this encounter Visit Diagnoses Not on filedocumented in this encounter Care Teams Model Maker Fiberglass Relationship Specialty Start Date End Date Nicol Burton MD [address] [place] [address] PCP - General Internal Medicine 03/19/23 documented as of this encounter Additional Source Comments The information contained in this document represents components of the legal health record. It is not the complete legal health record.[facility]
== END ==
LOC: HO.CARD 14:29
PROVIDERS: PCP Internal Medicine; Visit Provider Internal Medicine Cardiovascular Disease
DX: R94.31 Abnormal electrocardiogram [ECG] [EKG] (principal)
CPT/HCPCS: 93306; Q9957

== ENCOUNTER → 2025-02-07 14:32 | Outpatient (BNV) | payer MEDICARE, SELFPAY | PROVIDERS: PCP Internal Medicine; Visit Provider Internal Medicine | DX: I35.8 Other nonrheumatic aortic valve disorders (principal) | CPT/HCPCS: 93306 ==

== ENCOUNTER → 2025-02-28 09:57 | Outpatient (REF) | payer MEDICARE, SELFPAY ==
--- NOTE | ~2025-02-28 | NM_ITS ---
EXERCISE MYOCARDIAL PERFUSION STUDY INDICATION: Abnormal EKG TECHNIQUE: The patient was brought in for an exercise perfusion study on 02/28/2025. Patient performed exercise as per Fernando protocol and was injected 30 mCi of sestamibi once target heart rate was achieved. Images were obtained using the SPECT gamma camera interlaced with the gating device. Images were obtained in supine position. Resting perfusion study was performed on 03/01/2025. Patient was administered 30 mCi of sestamibi intravenously at rest. Images were then obtained in supine position. Total DLP 137 mGy-cm. Images were processed with the software and compared side to side in short axis, horizontal long axis and vertical long axis views. FINDINGS: Raw aquisition reviewed. The stress perfusion study showed mildly diminished tracer uptake in the inferior wall. There is improvement with CT attenuation correction suggestive of diaphragmatic attenuation artifact. The gated study shows normal LV systolic function with calculated LVEF of 64%. LV cavity is normal in size. The gated study shows normal wall thickening and contraction of segments. Resting study shows no significant perfusion abnormality. Gating at rest reveals normal wall motion with visually normal LVEF. The findings are consistent with no clear reversible or fixed perfusion abnormality. NM/NM tao perf SPECT rest & str IMPRESSION: 1. Myocardial perfusion imaging study shows normal myocardial perfusion. 2. Gated LVEF is 64% during stress. 3. Transient ischemic dilatation not present. EKG component of the test reported separately. Electronically signed by: Jorge Augustine MD 03/02/2025 02:19 PM [facility]
--- NOTE | 2025-02-28 12:08 | CA_ITS ---
Acquisition Time: 2025-02-28 10:25:15 Total Exercise Time: 00:05:00 Test Indications: Abnormal ECG Medications: AMLODIPINE ASA ATORVASTATIN OLMESARTAN Protocol: SHANNAN Max HR: 153 BPM 102% of Pred: 150 BPM Max BP: 168/60 mmHG Max Work Load: 7.0 METS Exercise stress test with exercise 5 mins of Shannan Protocol, achieving 102% MPHR, with reports of SOB, no chest pain, without any arrythmias, with normotensive response to exercise. Without any EKG changes meeting criteria for ischemia. In recovery, breathing improved and pt feeling back to baseline. Nuclear images pending. Test reviewed with Dr. Augustine. Referred By: Raj Hernandez Electronically Signed By: Carlos Avalos
== END ==
LOC: HO.CARD 09:57
PROVIDERS: PCP Internal Medicine; Visit Provider Internal Medicine Cardiovascular Disease
DX: R94.31 Abnormal electrocardiogram [ECG] [EKG] (principal); R07.9 Chest pain, unspecified
CPT/HCPCS: 78452; 93017; A9500

== ENCOUNTER → 2025-02-28 12:08 | Outpatient (BNV) | payer MEDICARE, SELFPAY | PROVIDERS: PCP Internal Medicine | DX: R06.02 Shortness of breath (principal) | CPT/HCPCS: 78452; 93016; 93018 ==